=== PATIENT | female | born 1945 | race Asian ===

== ENCOUNTER 2019-07-29 20:51 | Inpatient (IN) | payer OTHER ==
[~2019-07-29] VITALS: Ht 157.5 cm; Wt 64.0 kg
[~2019-07-29 20:51] MED LIST: BENAZEPRIL HCL5 MG ORAL; COZAAR25 MG ORAL
[2019-07-29 20:55] VITALS: BP 110/86
--- NOTE | 2019-07-29 20:55 | NUR ---
ED Nurse Note: Pt FERMIN RA 31 from home. pt fell on kithen floor onto R side, pt c/o 08/24 pain, pt A&Ox4, VSS, accompanied by family, denies hitting head or loc
[2019-07-29] MEDS ORDERED: Morphine Sulfate 4mg/ml Inj (IV USE ONLY) IVP ONE (21:00)
--- NOTE | 2019-07-29 21:01 | Emergency Room Report ---
History of Present Illness General Chief Complaint: Multiple Trauma/Fall Source: Patient, Family Member, EMS Present Illness HPI Patient presents after ground-level fall. She twisted and landed on her left side. Paramedics were summoned and there is obvious deformity. They were able to give her 100 mcg of fentanyl with some improvement. Patient denies any numbness. She has a history of hypertension but denies any chest pain palpitations fevers cough nausea vomiting dysuria. No loss of consciousness. She denies any headache or neck pain. Is also some left middle finger pain when she fell she hit the hand. No chills, sore throat, abdominal pain, shortness of breath, rashes, depression , anxiety, visual changes. Allergies: Coded Allergies: No Known Allergies (Unverified , 07/29/19) Patient History Past Medical History: see triage record Social History: Denies: smoking, alcohol use, drug use Social History Narrative With family Reviewed Nursing Documentation: PMH: Agreed; PSxH: Agreed Nursing Documentation-PMH Past Medical History: No History, Except For Hx Hypertension: Yes Review of Systems All Other Systems: negative except mentioned in HPI Physical Exam Vital Signs Date Time Temp Pulse Resp B/P (MAP) Pulse Ox O2 Delivery O2 Flow Rate FiO2 07/29/19 20:48 98.6 74 18 110/86 (94) 98 Room Air Sp02 EP Interpretation: reviewed, normal General Appearance: well appearing, no apparent distress, GCS 15 Head: normocephalic Eyes: bilateral eye normal inspection, bilateral eye PERRL, bilateral eye EOMI ENT: moist mucus membranes Neck: supple Respiratory: chest non-tender, lungs clear, normal breath sounds Cardiovascular #1: regular rate, rhythm Cardiovascular #2: 2+ radial (R), 2+ dorsalis pedis (R) Gastrointestinal: normal inspection, normal bowel sounds, non tender, no mass, non-distended Musculoskeletal: back normal, pelvis stable, tender - Right thigh and left middle finger with Heberden's deformity Neurologic: alert, oriented x3, distal neuro normal, grossly normal Psychiatric: mood/affect normal Skin: no rash, warm/dry Medical Decision Making Diagnostic Impression: Primary Impression: Femur fracture, right Qualified Codes: S72.331A - Displaced oblique fracture of shaft of right femur , initial encounter for closed fracture Additional Impression: Contusion of left hand Qualified Codes: S60.222A - Contusion of left hand, initial encounter ER Course Patient presents after fall with obvious right hip deformity shortening and external rotation. Differential includes fracture, contusion pelvic fracture amongst others. She still has pain with movement although fentanyl helped from the field. Evaluation will be with EKG, chest x-ray and labs along with pelvis and right hip films. A Garcia catheter will be placed. Patient will receive IV hydration and analgesia. X-ray reveals midshaft femur fracture with displacement and slight angulation. Hare traction splint ordered. Hare traction applied. Improved pain and better alignment. Distal neurovascular checked by me and normal. Post splint application x-ray with no displacement but slight angulation. Discussed findings with patient and family. Admit Dr. Farias with consultation from Dr. Pastrana. Laboratory Tests Test 07/29/19 21:30 07/29/19 22:10 White Blood Count 7.4 K/UL (4.8-10.8) Red Blood Count 3.68 M/UL (4.20-5.40) L Hemoglobin 11.8 G/DL (12.0-16.0) L Hematocrit 35.4 % (37.0-47.0) L Mean Corpuscular Volume 96 FL (80-99) Mean Corpuscular Hemoglobin 32.0 PG (27.0-31.0) H Mean Corpuscular Hemoglobin Concent 33.3 G/DL (32.0-36.0) Red Cell Distribution Width 11.3 % (11.6-14.8) L Platelet Count 173 K/UL (150-450) Mean Platelet Volume 5.0 FL (6.5-10.1) L Neutrophils (%) (Auto) 73.6 % (45.0-75.0) Lymphocytes (%) (Auto) 17.7 % (20.0-45.0) L Monocytes (%) (Auto) 5.9 % (1.0-10.0) Eosinophils (%) (Auto) 2.3 % (0.0-3.0) Basophils (%) (Auto) 0.6 % (0.0-2.0) Prothrombin Time 9.9 SEC (9.30-11.50) Prothrombin Time INR 0.9 (0.9-1.1) PTT 25 SEC (23-33) Sodium Level 141 MMOL/L (136-145) Potassium Level 4.0 MMOL/L (3.5-5.1) Chloride Level 105 MMOL/L (98-107) Carbon Dioxide Level 30 MMOL/L (21-32) Anion Gap 6 mmol/L (5-15) Blood Urea Nitrogen 21 mg/dL (7-18) H Creatinine 0.7 MG/DL (0.55-1.30) Estimate Glomerular Filtration Rate mL/min (>60) Glucose Level 198 MG/DL (74-106) H Calcium Level 8.9 MG/DL (8.5-10.1) Total Bilirubin 0.3 MG/DL (0.2-1.0) Aspartate Amino Transferase (AST) 16 U/L (15-37) Alanine Aminotransferase (ALT) 18 U/L (12-78) Alkaline Phosphatase 48 U/L (46-116) Total Protein 7.1 G/DL (6.4-8.2) Albumin 3.5 G/DL (3.4-5.0) Globulin 3.6 g/dL Albumin/Globulin Ratio 1.0 (1.0-2.7) Urine Color Pale yellow Urine Appearance Clear Urine pH 7 (4.5-8.0) Urine Specific Dorris 1.010 (1.005-1.035) Urine Protein Negative (NEGATIVE) Urine Glucose (UA) Negative (NEGATIVE) Urine Ketones Negative (NEGATIVE) Urine Blood 1+ (NEGATIVE) H Urine Nitrite Negative (NEGATIVE) Urine Bilirubin Negative (NEGATIVE) Urine Urobilinogen Normal MG/DL (0.0-1.0) Urine Leukocyte Esterase Negative (NEGATIVE) Urine RBC 0-2 /HPF (0 - 2) Urine WBC 0 /HPF (0 - 2) Urine Squamous Epithelial Cells None /LPF (NONE/OCC) Urine Amorphous Sediment Few /LPF (NONE) H Urine Bacteria None /HPF (NONE) EKG Diagnostic Results Rate: normal Rhythm: NSR ST Segments: no acute changes Rhythm Strip Diag. Results EP Interpretation: yes Rhythm: NSR, no PVC's, no ectopy Chest X-Ray Diagnostic Results Chest X-Ray Diagnostic Results : Chest X-Ray Ordered: Yes # of Views/Limited/Complete: 1 View Indication: Other EP Interpretation: Yes Interpretation: no consolidation, no effusion, no pneumothorax Impression: No acute disease Electronically Signed by: Electronically signed by Miguel Angel Mendoza MD Other X-Ray Diagnostic Results Other X-Ray Diagnostic Results #1: X-Ray ordered: Pelvis # of Views/Limited Vs Complete: 1 View Indication: Pain EP Interpretation: Yes Interpretation: other - Midshaft femur fracture with bayonet displacement Impression: Other Electronically Signed by: Electronically signed by Miguel Angel Mendoza MD Other X-Ray Diagnostic Results #2: X-Ray ordered: Right femur # of Views/Limited Vs Complete: 1 View Indication: Pain EP Interpretation: Yes Interpretation: other - Fracture [place] displacement and soft tissue swelling Impression: Other Electronically Signed by: Electronically signed by Miguel Angel Mendoza MD Other X-Ray Diagnostic Results #3: X-Ray ordered: Left hand # of Views/Limited Vs Complete: 3 View Indication: Pain EP Interpretation: Yes Interpretation: no dislocation, no soft tissue swelling, no fractures, other - DJD Impression: Other Electronically Signed by: Electronically signed by Miguel Angel Mendoza MD Other X-Ray Diagnostic Results #4: X-Ray ordered: R femur post splint # of Views/Limited Vs Complete: 2 View Indication: Other EP Interpretation: Yes Interpretation: other - improved alignment and less displacement, fx still present Impression: Other Electronically Signed by: Electronically signed by Miguel Angel Mendoza MD Last Vital Signs Date Time Temp Pulse Resp B/P (MAP) Pulse Ox O2 Delivery O2 Flow Rate FiO2 07/30/19 00:00 98.7 72 18 121/76 (91) 98 07/30/19 00:00 Room Air Status: improved Disposition: ADMITTED INPATIENT Condition: Serious Miguel Angel Mendoza MD Jul 29, 2019 21:01
[2019-07-29] MEDS: Sodium Chloride 550 ML IV SCH ×2 (21:29→22:30)
--- NOTE | 2019-07-29 21:38 | Diagnostic Imaging Report ---
EXAM: XR Chest, 1 View CLINICAL HISTORY: TRAUMA TECHNIQUE: Frontal view of the chest. COMPARISON: No relevant prior studies available. FINDINGS: Lungs: No consolidation or mass. Pleural space: No acute findings Heart: No cardiomegaly. Mediastinum: Unremarkable. Bones joints: No acute findings. IMPRESSION: No acute cardiopulmonary process.
--- NOTE | 2019-07-29 21:40 | Diagnostic Imaging Report ---
EXAM: XR Right Femur, 2 Views CLINICAL HISTORY: TRAUMA TECHNIQUE: Frontal and lateral views of the right femur. COMPARISON: No relevant prior studies available. IMPRESSION: Displaced oblique fracture through the mid to proximal femur. Degenerative changes of the knee.
--- NOTE | 2019-07-29 21:40 | Diagnostic Imaging Report ---
EXAM: XR Right Hip With Pelvis When Performed, 2 or 3 Views CLINICAL HISTORY: TRAUMA TECHNIQUE: Two or three views of the right hip with pelvis when performed. COMPARISON: No relevant prior studies available. Impression: Oblique fracture through the right proximal femur. Hip joint is intact.
--- NOTE | 2019-07-29 21:50 | Diagnostic Imaging Report ---
EXAM: XR Left Hand Complete, 3 or More Views CLINICAL HISTORY: TRAUMA TECHNIQUE: Frontal, lateral and oblique views of the left hand. COMPARISON: No relevant prior studies available. FINDINGS: Bones joints: No acute fracture. No dislocation. Diffuse osteopenia. Soft tissues: Unremarkable. No radiopaque foreign body. IMPRESSION: No acute osseous abnormalities.
[2019-07-29 22:10] LABS: BASOPHILS % (AUTO) 0.6 % (0.0-2.0); EOSINOPHILS % (AUTO) 2.3 % (0.0-3.0); HEMATOCRIT 35.4 % (37.0-47.0); HEMOGLOBIN 11.8 G/DL (12.0-16.0); LYMPHOCYTES % (AUTO) 17.7 % (20.0-45.0); MEAN CORPUSCULAR VOLUME 96 FL (80-99); MONOCYTES % (AUTO) 5.9 % (1.0-10.0); NEUTROPHILS % (AUTO) 73.6 % (45.0-75.0); PLATELET COUNT 173 K/UL (150-450); RED BLOOD COUNT 3.68 M/UL (4.20-5.40); RED CELL DISTRIBUTION WIDTH 11.3 % (11.6-14.8); WHITE BLOOD COUNT 7.4 K/UL (4.8-10.8)
[2019-07-29 22:20] LABS: ANION GAP 6 mmol/L (5-15); BLOOD UREA NITROGEN 21 mg/dL (7-18); CALCIUM 8.9 MG/DL (8.5-10.1); CARBON DIOXIDE 30 MMOL/L (21-32); CHLORIDE 105 MMOL/L (98-107); CREATININE 0.7 MG/DL (0.55-1.30); SODIUM 141 MMOL/L (136-145)
[2019-07-29 22:24] LABS: ALANINE AMINOTRANSFERASE 18 U/L (12-78); ALBUMIN 3.5 G/DL (3.4-5.0); ALKALINE PHOSPHATASE 48 U/L (46-116); ASPARTATE AMINO TRANSFERASE 16 U/L (15-37); BILIRUBIN,TOTAL 0.3 MG/DL (0.2-1.0)
[2019-07-29 22:29] LABS: INR 0.9 (0.9-1.1)
[2019-07-29 22:32] LABS: APPEARANCE,URINE CLEAR; BILIRUBIN, URINE NEGATIVE (NEGATIVE); COLOR,URINE PALE YELLOW; GLUCOSE, URINE (UA) NEGATIVE (NEGATIVE); KETONES,URINE NEGATIVE (NEGATIVE); LEUKOCYTE ESTERASE ,URINE NEGATIVE (NEGATIVE); NITRITE,URINE NEGATIVE (NEGATIVE); PH,URINE 7 (4.5-8.0); PROTEIN,URINE NEGATIVE (NEGATIVE); UROBILINOGEN,URINE NORMAL MG/DL (0.0-1.0)
--- NOTE | 2019-07-29 22:38 | Diagnostic Imaging Report ---
EXAM: XR Right Femur, 2 Views CLINICAL HISTORY: POST-OP TECHNIQUE: Frontal and lateral views of the right femur. COMPARISON: 07 29 19 IMPRESSION: Displaced fracture through the mid proximal femur slightly improved anatomic alignment. Hip joint is intact.
--- NOTE | 2019-07-29 23:05 | NUR ---
NURSE NOTES: Receive a report from JEFFREY Roman from ED.
--- NOTE | 2019-07-29 23:20 | NUR ---
TRANSFER TO FLOOR: Patient transferred to as ordered, per Dr Farias. Report given to JEFFREY Kern. Belongings and medications given to . Family and or S/O informed of transfer.
--- NOTE | 2019-07-29 23:40 | NUR ---
NURSE NOTES: Pt is newly admitted from ED via gurney. Pt is awake and alert. No acute distress noted. Breathing is even and non labored. On Nicholson's traction on right leg d/t femur fx. Sensory and motor intact. Pain is tolerated after pain medication at ER. Reinforce of immobilization on right leg. Garcia catheter is inserted state and patent with yellowish urine. Room air with 98%. IV H/L on right AC with patent. Belongings are checked and orientation given. Call light within reach. Will continue to monitor.
[2019-07-30] VITALS: BP 121/76
--- NOTE | 2019-07-30 01:25 | NUR ---
NURSE NOTES: Receive orders from Dr. Kaye. Order noted and carried out. Will continue to monitor.
[2019-07-30] MEDS ORDERED: Morphine Sulfate 4mg/ml Inj (IV USE ONLY) IVP PRN (01:45)
[2019-07-30] MEDS ORDERED: HYDROcodone/Acetamin 10/325 tab ORAL PRN (01:45)
[2019-07-30] MEDS: Sodium Chloride 550 ML IV SCH ×2 (01:56→21:00)
[2019-07-30] MEDS: HYDROcodone/Acetamin 5/325 tab ORAL PRN ×2 (03:07→07:50)
--- NOTE | 2019-07-30 03:40 | NUR ---
NURSE NOTES: After pain medication, pain relieved. No nausea/vomiting/ dizziness noted. On traction on right leg with alignment. Sensory and motor intact. Will continue to monitor.
[2019-07-30 04:00] VITALS: BP 118/75
[2019-07-30] MEDS: Heparin 5000 units/ml inj SUBQ SCH ×3 (05:45→21:42)
[2019-07-30 08:00] VITALS: BP 122/60
--- NOTE | 2019-07-30 08:00 | NUR ---
HAND-OFF: Report given to JEFFREY Samuel. Round is done. Explain to pt for usage of blue phone for interpretation. Pt verbalize understanding.
--- NOTE | 2019-07-30 08:16 | NUR ---
NURSE NOTES: Patient alert x4, Wolof speaking; on amber air, no sing of distress and shortness of breath; no sing of chest pain; IV RAC 20G flushes well; Nicholson Traction of the Right-Leg; Garcia drains by gravity yellowish urine; side rails up x2, breaks engaged, bed at lowest position; call light within reach; will keep monitoring.
[2019-07-30] MEDS: Acetaminophen 500mg (ES) tab ORAL SCH ×3 (09:08→17:22)
--- NOTE | 2019-07-30 10:45 | Consultation ---
Consult Note Consult Note patient seen/chart reviewed. Right displaced midshaft femur fx. Require ORIf after optimization medically. 2d echo. Will proceed after clearance and optimization from medical stand point. thank you Teja Calderón MD Jul 30, 2019 10:45
[2019-07-30] MEDS ORDERED: FOSAMAX PLUS D1 EAC1 PO (11:02)
[2019-07-30] MEDS ORDERED: NORVASC5 MG ORAL (11:02)
--- NOTE | 2019-07-30 11:13 | History and Physical ---
History of Present Illness General Date patient seen: Jul 30, 2019 Time patient seen: 09:00 Reason for Hospitalization: Multiple Trauma/Fall Present Illness HPI Ms. Gentile is a 73 year old Latvian-speaking female with hx of osteoporosis (on Fosamax weekly), HTN, presenting after a fall. She was walking in her kitchen when she tripped over a box on the floor then fell onto her right side. She denies any balance issues or symptoms such as chest pain, lightheadedness prior to the fall. Currently denies any symptoms including chest pain, nausea, vomiting, SOB, fever, chills, weakness, numbness, tingling. She is only reporting pain in her right leg, which is well controlled with current pain medications. Social history: lives with family, denies tobacco or significant alcohol use. Allergies: Coded Allergies: No Known Allergies (Unverified , 07/29/19) Medication History Scheduled Alendronate Sodium/Vitamin D3 (Fosamax Plus D 70 Mg-5,600 Iu), 1 EACH PO ONCE A WEEK, (Reported) Amlodipine Besylate (Norvasc), 5 MG ORAL DAILY, (Reported) Losartan Potassium* (Cozaar*), 25 MG ORAL DAILY, (Reported) Patient History History Provided By: Patient, Family Member Healthcare decision maker yes Resuscitation status Full Code Advanced Directive on File Past Medical/Surgical History Past Medical/Surgical History: (1) Femur fracture, right (2) Contusion of left hand (3) HTN (hypertension) (4) Osteoporosis Family History Family History: Patient reports no known family medical history. Review of Systems Constitutional: Denies: no symptoms, see HPI, chills, sweats, fever, malaise, weakness, other Eye: Denies: no symptoms, see HPI, eye pain, blurred vision, tearing, double vision, nose pain, nose congestion, acuity changes, discharge, other ENT: Denies: no symptoms, see HPI, ear pain, ear discharge, nose pain, nose congestion, throat pain, throat swelling, mouth pain, hearing loss, nasal discharge, other Respiratory: Denies: no symptoms, see HPI, cough, orthopnea, shortness of breath, stridor, wheezing, COLE, sputum, other Cardiovascular: Denies: no symptoms, see HPI, chest pain, edema, palpitations, syncope, PND, other Gastrointestinal: Denies: no symptoms, see HPI, abdominal pain, constipation, diarrhea, nausea, vomiting, melena, hematemesis, other Genitourinary: Denies: no symptoms, see HPI, discharge, dysuria, frequency, hematuria, pain, retention, incontinence, urgency, vag bleed/dc, other Musculoskeletal: Reports: other - right leg pain from fx Skin: Denies: no symptoms, see HPI, rash, change in color, change in hair/nails , dryness, lesions, other Psychiatric: Denies: no symptoms, see HPI, prior hx, anxiety, depressed feelings, emotional problems, SI, HI, hallucinations, other Neurological: Denies: no symptoms, see HPI, headache, numbness, paresthesia, seizure, tingling, tremors, focal weakness, syncope, dizziness, other Endocrine: Denies: no symptoms, see HPI, excessive sweating, flushing, intolerance to temperature, increased thirst, increased urine, unexplained weight loss, other Hematologic/Lymphatic: Denies: no symptoms, see HPI, anemia, blood clots, easy bleeding, easy bruising, swollen glands, diathesis, other Physical Exam General Appearance: WD/WN, no apparent distress, alert Lines, tubes and drains: peripheral HEENT: normocephalic, atraumatic, anicteric Neck: supple Respiratory/Chest: lungs clear, normal breath sounds, no respiratory distress, no accessory muscle use Cardiovascular/Chest: normal rate, regular rhythm, no gallop/murmur Abdomen: normal bowel sounds, non tender, soft Extremities: other - right leg with external fixators in place. left leg wnl. Neurologic: alert, oriented x 3, responsive, other - legs with normal sensation bilaterally. Musculoskeletal: normal muscle bulk Last 24 Hour Vital Signs Date Time Temp Pulse Resp B/P (MAP) Pulse Ox O2 Delivery O2 Flow Rate FiO2 07/30/19 09:00 Room Air 07/30/19 08:20 98.7 07/30/19 08:00 98.9 80 18 122/60 (80) 97 07/30/19 04:00 98.7 72 18 118/75 (89) 98 07/30/19 00:00 98.7 72 18 121/76 (91) 98 07/30/19 00:00 Room Air 07/29/19 23:20 98.6 74 18 110/86 98 Room Air 07/29/19 20:55 74 18 Room Air 07/29/19 20:55 98.6 74 18 110/86 98 Room Air 07/29/19 20:48 98.6 74 18 110/86 (94) 98 Room Air Intake and Output 07/29/19 07/30/19 19:00 07:00 Intake Total 50 ml Output Total 1570 ml Balance -1520 ml Intake Oral 50 ml Output Urine Total 1570 ml Laboratory Tests Test 07/29/19 21:30 07/29/19 22:10 White Blood Count 7.4 K/UL (4.8-10.8) Red Blood Count 3.68 M/UL (4.20-5.40) L Hemoglobin 11.8 G/DL (12.0-16.0) L Hematocrit 35.4 % (37.0-47.0) L Mean Corpuscular Volume 96 FL (80-99) Mean Corpuscular Hemoglobin 32.0 PG (27.0-31.0) H Mean Corpuscular Hemoglobin Concent 33.3 G/DL (32.0-36.0) Red Cell Distribution Width 11.3 % (11.6-14.8) L Platelet Count 173 K/UL (150-450) Mean Platelet Volume 5.0 FL (6.5-10.1) L Neutrophils (%) (Auto) 73.6 % (45.0-75.0) Lymphocytes (%) (Auto) 17.7 % (20.0-45.0) L Monocytes (%) (Auto) 5.9 % (1.0-10.0) Eosinophils (%) (Auto) 2.3 % (0.0-3.0) Basophils (%) (Auto) 0.6 % (0.0-2.0) Prothrombin Time 9.9 SEC (9.30-11.50) Prothromb Time International Ratio 0.9 (0.9-1.1) Activated Partial Thromboplast Time 25 SEC (23-33) Sodium Level 141 MMOL/L (136-145) Potassium Level 4.0 MMOL/L (3.5-5.1) Chloride Level 105 MMOL/L (98-107) Carbon Dioxide Level 30 MMOL/L (21-32) Anion Gap 6 mmol/L (5-15) Blood Urea Nitrogen 21 mg/dL (7-18) H Creatinine 0.7 MG/DL (0.55-1.30) Estimat Glomerular Filtration Rate mL/min (>60) Glucose Level 198 MG/DL (74-106) H Calcium Level 8.9 MG/DL (8.5-10.1) Total Bilirubin 0.3 MG/DL (0.2-1.0) Aspartate Amino Transf (AST/SGOT) 16 U/L (15-37) Alanine Aminotransferase (ALT/SGPT) 18 U/L (12-78) Alkaline Phosphatase 48 U/L (46-116) Total Protein 7.1 G/DL (6.4-8.2) Albumin 3.5 G/DL (3.4-5.0) Globulin 3.6 g/dL Albumin/Globulin Ratio 1.0 (1.0-2.7) Urine Color Pale yellow Urine Appearance Clear Urine pH 7 (4.5-8.0) Urine Specific [place] 1.010 (1.005-1.035) Urine Protein Negative (NEGATIVE) Urine Glucose (UA) Negative (NEGATIVE) Urine Ketones Negative (NEGATIVE) Urine Blood 1+ (NEGATIVE) H Urine Nitrite Negative (NEGATIVE) Urine Bilirubin Negative (NEGATIVE) Urine Urobilinogen Normal MG/DL (0.0-1.0) Urine Leukocyte Esterase Negative (NEGATIVE) Urine RBC 0-2 /HPF (0 - 2) Urine WBC 0 /HPF (0 - 2) Urine Squamous Epithelial Cells None /LPF (NONE/OCC) Urine Amorphous Sediment Few /LPF (NONE) H Urine Bacteria None /HPF (NONE) Height (Feet): 5 Height (Inches): 2.00 Weight (Pounds): 130 Medications Current Medications Medications (Trade) Dose Ordered Sig/Sary Route PRN Reason Start Time Stop Time Status Last Admin Dose Admin Acetaminophen (Tylenol) 1,000 mg TID ORAL 07/30/19 09:00 08/29/19 08:59 07/30/19 09:08 Acetaminophen/ Hydrocodone Bitart ([place] 10/325) 1 tab Q4H PRN ORAL Severe Pain (Pain Scale 7-10) 07/30/19 01:45 08/06/19 01:44 Acetaminophen/ Hydrocodone Bitart ([place] 5/325) 1 tab Q4H PRN ORAL Moderate Pain (Pain Scale 4-6) 07/30/19 01:45 08/06/19 01:44 07/30/19 07:50 Heparin Sodium (Porcine) (Heparin 5000 units/ml) 5,000 units EVERY 8 HOURS SUBQ 07/30/19 06:00 08/29/19 05:59 07/30/19 05:45 Morphine Sulfate (Morphine Sulfate) 4 mg Q4H PRN IVP Severe Breakthru Pain (>7) 07/30/19 01:45 08/06/19 01:44 Ondansetron HCl (Zofran) 4 mg Q4H PRN IVP Nausea & Vomiting 07/30/19 01:45 08/29/19 01:44 Sodium Chloride 550 ml @ 150 mls/hr Q3H40M IV 07/29/19 21:00 08/28/19 20:59 07/29/19 22:30 Objective Narrative Right femur xray IMPRESSION: Displaced fracture through the mid proximal femur slightly improved anatomic alignment. Hip joint is intact. Left hand xray IMPRESSION: No acute osseous abnormalities. Hip xray Impression: Oblique fracture through the right proximal femur. Hip joint is intact. Assessment/Plan Problem List: (1) Femur fracture, right ICD Codes: S72.91XA - Unspecified fracture of right femur, initial encounter for closed fracture SNOMED: 50312277 Qualifiers: Qualified Codes: S72.331A - Displaced oblique fracture of shaft of right femur, initial encounter for closed fracture (2) Contusion of left hand ICD Codes: S60.222A - Contusion of left hand, initial encounter SNOMED: 0080724 Qualifiers: Qualified Codes: S60.222A - Contusion of left hand, initial encounter (3) HTN (hypertension) ICD Codes: I10 - Essential (primary) hypertension SNOMED: 81170688 Qualifiers: Qualified Codes: I10 - Essential (primary) hypertension (4) Osteoporosis ICD Codes: M81.0 - Age-related osteoporosis without current pathological fracture SNOMED: 36266261 Qualifiers: Status: stable Assessment/Plan: Ms. Gentile is a 73 year old Latvian-sp[eaking female with hx of HTN, osteoporosis s/ p fall with right displaced femur fracture. #S/P FALL #RIGHT DISPLACED FEMUR FRACTURE s/p mechanical fall at home with above mentioned fracture, s/p external fixation in ED. -Admit to med/surg. -Continue pain medications. -Ortho consulted. Appreciate recs. -Will need medical clearance prior to ORIF, first with 2D echo. (ordered) #LEFT HAND CONTUSION Xray negative. -Continue to monitor. #HTN -Continue home Losartan 25 -Continue home Amlodipine 5 #OSTEOPOROSIS -Continue Fosamax 70 weekly, dose today. #SOCIAL ISSUE Family wants to talk to about medicare. - consult placed. Tash Baptiste M.D. Jul 30, 2019 11:13
[2019-07-30 12:00] VITALS: BP 110/68
[2019-07-30 16:00] VITALS: BP 112/75
--- NOTE | 2019-07-30 18:33 | NUR ---
NURSE NOTES: Consent for the ORIF done by patient's son, Eduardo Gentile; consent on patient's file.
--- NOTE | 2019-07-30 18:35 | NUR ---
NURSE NOTES: Nicholson Traction for the Right-Leg returned to ER and given to Charge Nurse, Aye cortes. The paper the charge nurse signed for receiving the Nicholson Traction is on patient's file.
--- NOTE | 2019-07-30 19:15 | Consultation ---
DATE OF CONSULTATION: 07/30/2019 ORTHOPEDIC CONSULTATION REASON FOR CONSULTATION: Right-sided femur fracture. BRIEF HISTORY: The patient is a pleasant 73-year-old female who had a ground level fall and was noted to have right femur deformity. She was brought in by senior relationship manager. X-rays were obtained. X-ray showed a midshaft femur fracture. She also complained of some mild pain in the left middle finger, although she is able to move it. There is no significant swelling. She was admitted to the hospital with diagnosis of right femur fracture after x-ray confirmed it. Orthopedic consultation was obtained. PAST MEDICAL HISTORY: Significant for history of hypertension, but she does not have any other significant cardiac issues. She does not have a regular physician who has been following her. PAST SURGICAL HISTORY: None available. MEDICATIONS: Please see chart. ALLERGIES: No known drug allergies. SOCIAL HISTORY: She has a son by the name of Eduardo Gentile at [phone], which I discussed the care of the patient with. She does not smoke or drink. She is an ambulator. REVIEW OF SYSTEMS: Noncontributory. PHYSICAL EXAMINATION: Examination of the patient today reveals that she is a pleasant lady, cooperative with examination. The femur appears to be in line. There is a Hare traction device on. There is no numbness or tingling. She is able to wiggle her toes. X-RAYS AND MRIS: X-ray of the right hip and pelvis and femur are reviewed. There is evidence of a midshaft displaced fracture of the femur. There is no abnormal ossification or calcification. IMPRESSION: Right femur midshaft fracture in a 73-year-old female. PLAN: At this time, I had discussion with the patient and explained to her my findings. The Hare traction device is beginning to her back. Therefore, we will go ahead and remove the Hare traction device and put pillows around her leg to stabilize it. She is strict bedrest for the time being. At this time, I would like to get her optimized medically and order 2D echo. We asked Internal Medicine to evaluate her and run necessary tests to make sure she is optimized for surgery. She will require open reduction and internal fixation of right femur with IM rodding. I discussed this with her son, Eduardo Gentile at [phone] and he is in agreement with proceeding with surgery. Risks, benefits, and complications of surgery were fully discussed with him. We will plan on proceeding with surgery once she is optimized most likely Wednesday morning. All questions were answered. Teja Calderón M.D. DR: Malachi JOB#: [id number] CC:
--- NOTE | 2019-07-30 19:42 | NUR ---
HAND-OFF: Report given to JEFFREY Diaz.
--- NOTE | 2019-07-30 19:43 | NUR ---
NURSE NOTES: Received report from JEFFREY Oneill. No distress noted, patient was asleep, easily woke up. Alert, denies pain at this time. Pillow between legs as recommended. Bed in low position, locked, side rails up x2, call light within reach. Will continue to monitor.
[2019-07-30 20:00] VITALS: BP 99/64
[2019-07-31] VITALS: BP 103/61
--- NOTE | 2019-07-31 01:16 | NUR ---
Patient asleep. No distress noted.
--- NOTE | 2019-07-31 03:53 | NUR ---
NURSE NOTES: Repositioned, slight tilt towards left with pillow. Patient visibly in pain, grimacing and moaning, but refused pain medication several times. Encouraged to call as needed, verbalizes understanding. Will continue to monitor.
[2019-07-31 04:00] VITALS: BP 100/64
[2019-07-31] MEDS: Heparin 5000 units/ml inj SUBQ SCH ×3 (06:14→21:27)
--- NOTE | 2019-07-31 06:33 | NUR ---
NURSE NOTES: Son here visiting. States he would like to be called when physician and/or social services assistant come in to see patient. Will endorse to AM shift RN. Pain assessment and control discussed with patient and son. Patient denies pain at this time.
--- NOTE | 2019-07-31 07:39 | NUR ---
NURSE NOTES: Report given to JEFFREY Romero.
--- NOTE | 2019-07-31 07:45 | NUR ---
NURSE NOTES: Received report from JEFFREY Chapman. Rounding done with outgoing nurse. Pt a/o x 4, Croatian speaking, in bed. No respiratory distress noted. Denies any pain at this time. SCD is on for left lower leg. Garcia catheter is patent. Bed in lowest position, call light within reach. Will continue to monitor.
[2019-07-31 08:00] VITALS: BP 102/67
[2019-07-31] MEDS: Acetaminophen 500mg (ES) tab ORAL SCH ×3 (08:36→17:30)
[2019-07-31] MEDS: Losartan 25mg tab ORAL SCH (08:37)
--- NOTE | 2019-07-31 09:06 | General Progress Note ---
Assessment/Plan Status: stable Assessment/Plan: Ms. Gentile is a 73 year old Turkmen-speaking female with hx of HTN, osteoporosis s/ p mechanical fall with right displaced femur fracture. 1. Right displaced femur fracture s/p mechanical fall ss/p external fixation in ED. -Continue pain medications. -Ortho consulted. Appreciate recs. -Patient is medically stable and optimized for planned orthopedic procedure. open reduction and internal fixation of right femur with IM rodding. RCRI class I risk ( 0 points), 3.9% 30-day risk of , [place], or cardiac arrest. No further testing indicated NSQIP below average risk for all outcomes including serious complications, pneumonia, sepsis and discharge to nursing/rehab facility 2. Left hand contusion Xray negative. -Continue to monitor. 3.HTN, controlled -Continue home Losartan 25 -Continue home Amlodipine 5 4.Osteoporosis -Continue Fosamax 70 weekly, dose today. 5.Social issues Self pay patient. Family wants to talk to SW -SW consult placed. I spent 40 minutes on this encounter. 50% spent on counselling and care coordination Time of this note may not reflect time of encounter Subjective Date patient seen: Jul 31, 2019 ROS Limited/Unobtainable: No Constitutional: Denies: no symptoms, chills, diaphoresis, fever, malaise, weakness, other - hip pain HEENT: Denies: no symptoms, eye pain, blurred vision, tearing, double vision, ear pain, ear discharge, nose pain, nose congestion, throat pain, throat swelling, mouth pain, mouth swelling, other Cardiovascular: Denies: no symptoms, chest pain, edema, irregular heart rate, lightheadedness, palpitations, syncope, other Respiratory: Denies: no symptoms, cough, orthopnea, shortness of breath, SOB with excertion, SOB at rest, sputum, stridor, wheezing, other Gastrointestinal/Abdominal: Denies: no symptoms, abdomen distended, abdominal pain, black stools, tarry stools, blood in stool, constipated, diarrhea, difficulty swallowing, nausea, poor appetite, poor fluid intake, rectal bleeding , vomiting, other Genitourinary: Denies: no symptoms, burning, discharge, frequency, flank pain, hematuria, incontinence, pain, urgency, other Neurologic/Psychiatric: Denies: no symptoms, anxiety, depressed, emotional problems, headache, numbness, paresthesia, pre-existing deficit, seizure, tingling, tremors, weakness, other Endocrine: Denies: no symptoms, excessive sweating, flushing, intolerance to cold, intolerance to heat, increased hunger, increased thirst, increased urine, unexplained weight gain, unexplained weight loss, other Hematologic/Lymphatic: Denies: no symptoms, anemia, easy bleeding, easy bruising, other Allergies: Coded Allergies: No Known Allergies (Unverified , 07/29/19) Subjective seen and examined at bedside Admitted s/p mechanical fall and sustaining right femur fracture Denies any chest pain, sob, palpitations, syncope, dizziness or lightheadedness Objective Last 24 Hour Vital Signs Date Time Temp Pulse Resp B/P (MAP) Pulse Ox O2 Delivery O2 Flow Rate FiO2 07/31/19 08:37 102/67 07/31/19 08:00 97.7 86 18 102/67 (79) 95 07/31/19 04:00 97.9 69 16 100/64 (76) 96 07/31/19 00:00 97.7 73 17 103/61 (75) 96 07/30/19 21:00 Room Air 07/30/19 20:00 97.9 70 16 99/64 (76) 96 07/30/19 17:52 98.2 07/30/19 16:00 98.2 74 17 112/75 (87) 95 07/30/19 12:00 98.3 65 20 110/68 (82) 98 Intake and Output 07/30/19 07/31/19 19:00 07:00 Intake Total 720 ml 440 ml Output Total 1100 ml Balance 720 ml -660 ml Intake Oral 720 ml 440 ml Output Urine Total 1100 ml # Voids 2 Admission labs reviewed not attached here EKG: NSR, normal intervals, no acute st-t changes Echo: Normal LV systolic function, Grade I diastolic dysfunction, pulmonary hypertension Height (Feet): 5 Height (Inches): 2.00 Weight (Pounds): 130 Objective General Appearance: no apparent distress, alert Lines, tubes and drains: peripheral HEENT: normocephalic, atraumatic, anicteric Neck: supple, no jvd Respiratory/Chest: lungs clear, normal breath sounds, no respiratory distress, no accessory muscle use Cardiovascular/Chest: normal rate, regular rhythm, no gallop/murmur Abdomen: normal bowel sounds, non tender, soft Extremities: right leg with external fixators in place. left leg wnl. Neurologic: alert, oriented x 3, responsive, other - legs with normal sensation bilaterally. Musculoskeletal: normal muscle bulk skin: no rashes or ulcers You Warner M.D. Jul 31, 2019 09:06
[2019-07-31] MEDS: HYDROcodone/Acetamin 5/325 tab ORAL PRN ×2 (10:16→23:27)
--- NOTE | 2019-07-31 11:15 | Cardiology Report ---
APPROVED REPORT EKG Measurement Heart [id number] Normal sinus rhythm Normal ECG
[2019-07-31 12:00] VITALS: BP 108/69
--- NOTE | 2019-07-31 12:45 | Cardiology Report ---
APPROVED REPORT EXAM: Two-dimensional and M-mode echocardiogram with Doppler and color Doppler. INDICATION Pre-Op M-Mode DIMENSIONS IVSd1.5 (0.7-1.1cm)Left Atrium (MM)2.1 (1.6-4.0cm) LVDd4.0 (3.5-5.6cm)Aortic Root3.4 (2.0-3.7cm) PWd1.0 (0.7-1.1cm)Aortic Cusp Exc.2.0 (1.5-2.0cm) LVDs1.5 (2.5-4.0cm) PWs1.8 cm Normal left ventricular chamber size, systolic function and wall motion. Left ventricular ejection fraction estimated to be 60 %. Mild left ventricular hypertrophy. No evidence of pericardial effusion. All other cardiac chamber sizes are within normal limits. Focal aortic valve sclerosis with adequate cusp excursion. Thickened mitral valve leaflets with normal excursion. Mild mitral annulus and aortic root calcification. Pulmonic valve not well visualized. Normal tricuspid valve structure. IVC is normal in size with physiological collapse. A color flow and spectral Doppler study was performed and revealed: No aortic regurgitation. Mild to moderate mitral regurgitation. Mitral diastolic velocities suggest mild left ventricular diastolic dysfunction (Grade I). Moderate tricuspid regurgitation. Tricuspid systolic velocities suggests peak right ventricular systolic pressure of 50 mmHg, consistent with moderate pulmonary hypertension. Moderate pulmonic regurgitation present.
--- NOTE | 2019-07-31 14:27 | NUR ---
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 98.6 HR 74 RR 18 B/P 160/86 RIGHT FEMUR X-RAY=OBLIQUE FRACTURE 2D ECHO= EF 60% CXR= NO ACUTE PROCESS BUN 21 IS: ZOFRAN IV MORPHINE IV IV BOLUS NS X 500ML ADMITTED TO MED/SURG@ 2330 MED/SURG STATUS DCP RETURN HOME
--- NOTE | 2019-07-31 14:50 | Anethesia Preoperative Eval ---
Anesthesia Pre-op PMH/ROS General Date of Evaluation: Jul 31, 2019 Time of Evaluation: 14:46 Anesthesiologist: Laci ASA Score: ASA 3 Mallampati Score Class I : Soft palate, uvula, fauces, pillars visible Class II: Soft palate, uvula, fauces visible Class III: Soft palate, base of uvula visible Class IV: Only hard plate visible Mallampati Classification: Class II Surgeon: Kaitlynn Diagnosis: R Femur Fx Surgical Procedure: ORIF R Femur Anesthesia History: none Family History: no anesthesia problems Allergies: Coded Allergies: No Known Allergies (Unverified , 07/29/19) Medications: see eMAR Patient NPO?: Yes Past Medical History Cardiovascular: Reports: HTN Pulmonary: Reports: asthma HEENT: Reports: cataract (L), cataract (R) Musculoskeletal/Integumentary: Reports: OA, other - Contracture Anesthesia Pre-op Phys. Exam Physician Exam Last Vital Signs Date Time Temp Pulse Resp B/P (MAP) Pulse Ox O2 Delivery O2 Flow Rate FiO2 07/31/19 12:00 98.9 79 17 108/69 (82) 96 07/31/19 09:00 Room Air Constitutional: NAD Neurologic: CN 2-12 intact Cardiovascular: RRR Respiratory: CTA Gastrointestinal: S/NT/ND Airway Exam Mallampati Score: Class II MO: limited ROM: limited Teeth: missing, intact Anesthesia Pre-op A/P Risk Assessment & Plan Assessment: ASA 3 Plan: GA Status Change Before Surgery: No Pre-Antibiotics Drug: Juan Daugherty MD Jul 31, 2019 14:50
[2019-07-31 16:00] VITALS: BP 105/68
--- NOTE | 2019-07-31 19:22 | NUR ---
HAND-OFF: Report given to JEFFREY Chapman.
--- NOTE | 2019-07-31 19:24 | NUR ---
NURSE NOTES: Received report from JEFFREY Romero. Patient alert, awake, No distress noted, no pain reported. Patient aware of NPO status after midnight in preparation for surgery. Bed in low position, locked, side rails up x2, call light within reach. Will continue to monitor.
[2019-07-31 20:00] VITALS: BP 112/67
[2019-08-01] VITALS (12 sets, daily range): BP systolic 96–126; BP diastolic 61–79
--- NOTE | 2019-08-01 02:57 | NUR ---
NURSE NOTES: Patient sleeping quietly.
[2019-08-01 05:37] LABS: BASOPHILS % (AUTO) 0.6 % (0.0-2.0); EOSINOPHILS % (AUTO) 4.1 % (0.0-3.0); HEMATOCRIT 32.2 % (37.0-47.0); HEMOGLOBIN 10.6 G/DL (12.0-16.0); LYMPHOCYTES % (AUTO) 29.3 % (20.0-45.0); MEAN CORPUSCULAR VOLUME 97 FL (80-99); MONOCYTES % (AUTO) 8.3 % (1.0-10.0); NEUTROPHILS % (AUTO) 57.6 % (45.0-75.0); PLATELET COUNT 174 K/UL (150-450); RED BLOOD COUNT 3.32 M/UL (4.20-5.40); RED CELL DISTRIBUTION WIDTH 10.8 % (11.6-14.8); WHITE BLOOD COUNT 6.4 K/UL (4.8-10.8)
[2019-08-01 05:49] LABS: ANION GAP 5 mmol/L (5-15); BLOOD UREA NITROGEN 21 mg/dL (7-18); CALCIUM 7.9 MG/DL (8.5-10.1); CARBON DIOXIDE 28 MMOL/L (21-32); CHLORIDE 107 MMOL/L (98-107); CREATININE 0.7 MG/DL (0.55-1.30); POTASSIUM 4.4 MMOL/L (3.5-5.1); SODIUM 140 MMOL/L (136-145)
[2019-08-01] MEDS: Heparin 5000 units/ml inj SUBQ SCH ×3 (06:00→21:23)
[2019-08-01] MEDS ORDERED: Morphine Sulfate PF 10 ML ONE (06:41)
[2019-08-01] MEDS ORDERED: fentaNYL 100 mcg/2 mL IV ONE (06:41)
[2019-08-01] MEDS ORDERED: Bacitracin 50000 Units Vial ONE (06:47)
[2019-08-01] MEDS ORDERED: Bupivacaine w/Epi 0.5% 30ml Vial INJ ONE (06:47)
[2019-08-01] MEDS ORDERED: Bupivacaine 0.5% Inj 30 ml vial INJ ONE (06:47)
[2019-08-01] MEDS ORDERED: NeoSporin Gu Irrig 1ml Amp IRRIG ONE (06:47)
--- NOTE | 2019-08-01 06:51 | NUR ---
NURSE NOTES: Patient taken to OR via bed, accompanied by OR tech and son.
[2019-08-01] MEDS ORDERED: Succinylcholine 20mg/ml 10ml vial ONE (06:52)
[2019-08-01] MEDS ORDERED: NS Irrig 1000ml ONE (07:00)
[2019-08-01] MEDS ORDERED: fentaNYL 100 mcg/2 mL IV PRN (07:00)
[2019-08-01] MEDS ORDERED: Hydromorphone 0.5mg/0.5ml inj IVP PRN (07:00)
[2019-08-01] MEDS ORDERED: LR 1000ml ONE (07:00)
[2019-08-01] MEDS ORDERED: Acetaminophen (Non formulary) 100 ML IV ONE (07:00)
[2019-08-01] MEDS ORDERED: ePHEDrine 50mg/ml Inj ONE (07:00)
[2019-08-01] MEDS ORDERED: Sterile Water Irrig 1000ml IRRIG ONE (07:00)
[2019-08-01] MEDS ORDERED: Metoclopramide 10mg/2ml Inj IVP PRN (07:00)
--- NOTE | 2019-08-01 07:01 | Pre-Procedure Note/Attestation ---
Pre-Procedure Note/Attestation Complete Prior to Procedure Planned Procedure: right Procedure Narrative: rt femur ORIF Indications for Procedure Pre-Operative Diagnosis: rt femur fracture Attestation I attest that I discussed the nature of the procedure; its benefits; risks and complications; and alternatives (and the risks and benefits of such alternatives ), prior to the procedure, with the patient (or the patient's legal food service representative). I attest that, if there was a reasonable possibility of needing a blood transfusion, the patient (or the patient's legal food service representative) was given the [facility] standardized written summary, pursuant to the Lawrence Nithya Blood Safety Act ([place] Health and Safety Code # 1645, as amended). I attest that I re-evaluated the patient just prior to the surgery and that there has been no change in the patient's H&P, except as documented below: NONE Teja Calderón MD Aug 01, 2019 07:01
--- NOTE | 2019-08-01 07:33 | NUR ---
HAND-OFF: Report given to Chris. MURPHY.
--- NOTE | 2019-08-01 07:52 | NUR ---
NURSE NOTES: Received report from JEFFREY Chapman, who stated patient went to surgery just prior to shift change.
[2019-08-01] MEDS ORDERED: Lidocaine 1% MPF 10mg/ml 5ml ONE (08:15)
[2019-08-01] MEDS ORDERED: Propofol 200mg/20ml IV ONE (08:15)
[2019-08-01] MEDS: Losartan 25mg tab ORAL SCH (09:00)
--- NOTE | 2019-08-01 09:00 | Brief Operative Note ---
Immediate Post Operative Note Operative Note Chief Complaint: rt leg pain Pre-op Diagnosis: rt femur fracture Procedure: rt femur orif Post-op Diagnosis: same as pre-op Findings: consistent w/pre-op dx studies Surgeon: md alexander Pit Hoist Operator: marvin stuart Anesthesiologist: MD Brian/GURINDER Valentine Anesthesia: general Specimen: none Complications: none Condition: stable Fluids: ns Estimated Blood Loss: minimal Drains: none Implant(s) used?: Yes - Teja Palafox MD Aug 01, 2019 09:00
--- NOTE | 2019-08-01 09:25 | General Progress Note ---
Assessment/Plan Status: stable Assessment/Plan: Ms. Gentile is a 73 year old Tamazight-speaking female with hx of HTN, osteoporosis s/ p mechanical fall with right displaced femur fracture. now POD 0, s/p open reduction and internal fixation of right femur. 1. Right displaced femur fracture s/p mechanical fall s/p open reduction and internal fixation. POD 0 -Continue pain medications. -vte ppx: ASA and heparin subq,q8hr -PT 2. Left hand contusion Xray negative. -Continue to monitor. 3.HTN, controlled -Continue home Losartan 25 -Continue home Amlodipine 5 4.Osteoporosis -Continue Fosamax 70 weekly, dose today. 5.Social issues reg insurance, now fixed -SW consult placed. I spent 40 minutes on this encounter. 50% spent on counselling and care coordination Time of this note may not reflect time of encounter Subjective Date patient seen: Aug 01, 2019 ROS Limited/Unobtainable: No Constitutional: Denies: no symptoms, chills, diaphoresis, fever, malaise, weakness, other HEENT: Denies: no symptoms, eye pain, blurred vision, tearing, double vision, ear pain, ear discharge, nose pain, nose congestion, throat pain, throat swelling, mouth pain, mouth swelling, other Cardiovascular: Denies: no symptoms, chest pain, edema, irregular heart rate, lightheadedness, palpitations, syncope, other Respiratory: Denies: no symptoms, cough, orthopnea, shortness of breath, SOB with excertion, SOB at rest, sputum, stridor, wheezing, other Gastrointestinal/Abdominal: Denies: no symptoms, abdomen distended, abdominal pain, black stools, tarry stools, blood in stool, constipated, diarrhea, difficulty swallowing, nausea, poor appetite, poor fluid intake, rectal bleeding , vomiting, other Genitourinary: Denies: no symptoms, burning, discharge, frequency, flank pain, hematuria, incontinence, pain, urgency, other Neurologic/Psychiatric: Denies: no symptoms, anxiety, depressed, emotional problems, headache, numbness, paresthesia, pre-existing deficit, seizure, tingling, tremors, weakness, other Endocrine: Denies: no symptoms, excessive sweating, flushing, intolerance to cold, intolerance to heat, increased hunger, increased thirst, increased urine, unexplained weight gain, unexplained weight loss, other Hematologic/Lymphatic: Denies: no symptoms, anemia, easy bleeding, easy bruising, other Allergies: Coded Allergies: No Known Allergies (Unverified , 07/29/19) Subjective seen and examined at bedside just returned from the OR no complaints Objective Last 24 Hour Vital Signs Date Time Temp Pulse Resp B/P (MAP) Pulse Ox O2 Delivery O2 Flow Rate FiO2 08/01/19 09:14 65 13 105/66 100 Simple Mask 6 08/01/19 09:09 97.8 60 14 119/72 100 Simple Mask 6 08/01/19 04:00 98.1 67 16 105/67 (80) 98 08/01/19 00:00 98.4 82 17 109/70 (83) 96 07/31/19 21:00 Room Air 07/31/19 20:00 98.6 87 17 112/67 (82) 96 07/31/19 16:00 98.3 73 18 105/68 (80) 96 07/31/19 12:00 98.9 79 17 108/69 (82) 96 Intake and Output 07/31/19 08/01/19 19:00 07:00 Intake Total 1340 ml Output Total 800 ml Balance 540 ml Intake Oral 1340 ml Output Urine Total 800 ml # Bowel Movements 2 Laboratory Tests 08/01/19 04:50: White Blood Count 6.4, Red Blood Count 3.32L, Hemoglobin 10.6L, Hematocrit 32.2L , Mean Corpuscular Volume 97, Mean Corpuscular Hemoglobin 32.0H, Mean Corpuscular Hemoglobin Concent 33.0, Red Cell Distribution Width 10.8L, Platelet Count 174, Mean Platelet Volume 5.1L, Neutrophils (%) (Auto) 57.6, Lymphocytes (%) (Auto) 29.3, Monocytes (%) (Auto) 8.3, Eosinophils (%) (Auto) 4.1H, Basophils (%) (Auto) 0.6, Sodium Level 140, Potassium Level 4.4, Chloride Level 107, Carbon Dioxide Level 28, Anion Gap 5, Blood Urea Nitrogen 21H, Creatinine 0.7, Estimat Glomerular Filtration Rate , Glucose Level 115H, Calcium Level 7.9L Height (Feet): 5 Height (Inches): 2.00 Weight (Pounds): 130 Objective General Appearance: no apparent distress, alert Lines, tubes and drains: peripheral HEENT: normocephalic, atraumatic, anicteric Neck: supple, no jvd Respiratory/Chest: lungs clear, normal breath sounds, no respiratory distress, no accessory muscle use Cardiovascular/Chest: normal rate, regular rhythm, no gallop/murmur Abdomen: normal bowel sounds, non tender, soft Neurologic: alert, oriented x 3, responsive, other - legs with normal sensation bilaterally. Musculoskeletal: normal muscle bulk skin: no rashes or ulcers You Warner M.D. Aug 01, 2019 09:25
--- NOTE | 2019-08-01 10:34 | NUR ---
NURSE NOTES: Patient arrrived back from OR at 1015am, received report from JEFFREY Everett. Patient comfortable appearing , aox4 and no CO pain. Son, Sheron Oakley, at bedside. Offered water, but patient declined. IVF runing per JAN. VSS , breathing easily on RA. No sign of cardiac or respiratory distress. Bed in [facility] , locked postiion with call grey at hand. Son translated to patient who had no further questions at this time. Patient stated that she understood she should call for help and not attempt to get oob without help--currently awaiting PT eval per orders. Garcia cdi and draining clear yellow urine and no discomfort reported by patient. Addendum: 08/01/19 at 1041 by Dallas Carr RN Surgical wound on R thigh covered with cdi occlusive foam tape--no swelling or redness noted and patient denies pain. Patient stated her lowoer legs numb but able to move with warm, strong DP pulses
--- NOTE | 2019-08-01 10:39 | NUR ---
Social Service Note PARAG left a detailed message for Eduardo Gentile [phone] regarding Medicare. Family can apply on line at SSA.gov or Medicare.gov and call social security at [phone] with patient to determine if patient is eligible for coverage. PARAG will continue to be available as needed.
--- NOTE | 2019-08-01 10:40 | Immediate Post-Op Evaluation ---
Immediate Post-Op Evalulation Immediate Post-Op Evalulation Procedure: femur ORIF Date of Evaluation: Aug 01, 2019 Time of Evaluation: 09:19 IV Fluids: 800 Blood Products: 0 Estimated Blood Loss: 100 Urinary Output: 200 Blood Pressure Systolic: 119 Blood Pressure Diastolic: 72 Pulse Rate: 60 Respiratory Rate: 14 O2 Sat by Pulse Oximetry: 98 Nausea: No Vomiting: No Complications none Patient Status: awake, reacts, patent Hydration Status: adequate Drug: ancef Given Within 1 Hr of Incision: Yes Time Given: 07:08 Meme Horn CRNA Aug 01, 2019 10:40
[2019-08-01] MEDS ORDERED: HYDROcodone/Acetamin 5/325 tab ORAL PRN (10:51)
[2019-08-01] MEDS ORDERED: Hydromorphone 0.5mg/0.5ml inj SUBQ PRN (10:51)
[2019-08-01] MEDS: D5 1/2NS 1,000 ML IV SCH (11:11)
--- NOTE | 2019-08-01 11:38 | NUR ---
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
--- NOTE | 2019-08-01 12:37 | Diagnostic Imaging Report ---
Indication: Right thigh Pain Findings: 2 views of the right femur were obtained. Postop images of the right femur demonstrating a long intramedullary david reducing a fracture of the mid shaft of the femur. Proximal and distal locking screws noted. Hardware alignment and position is satisfactory. IMPRESSION: Immediate postop films showing a surgical reduction of a right mid femur fracture
--- NOTE | 2019-08-01 12:38 | Diagnostic Imaging Report ---
Indication: Intraoperative imaging COMPARISON: None FINDINGS: 9 fluoroscopic images were obtained intraoperatively. Total fluoroscopic time 94 seconds Multiple intraoperative images showing intramedullary david fixation of a right mid femoral fracture IMPRESSION: Intraoperative imaging as described above
[2019-08-01] MEDS: Aspirin Baby 81mg ORAL SCH ×2 (12:58→17:55)
[2019-08-01] MEDS: Acetaminophen 500mg (ES) tab ORAL SCH ×3 (12:58→17:56)
[2019-08-01] MEDS: Docusate 100mg cap ORAL SCH ×2 (15:43→17:56)
[2019-08-01] MEDS: ceFAZolin sod 1 GM in D5W 55 ML IV SCH ×2 (15:49→23:09)
--- NOTE | 2019-08-01 16:36 | NUR ---
P.T NOTE: P.T EVALUATION COMPLETED AND TX INITIATED S/P R HIP ORIF POD#0. DAUGHTER PRESENT FOR TURKMEN TRANSLATION AND WHO PROVIDED INFO. RE: PLOF. PATIENT IS ALERT, PLEASANT AND COOPERATIVE DESPITE C/O R HIP PAIN LIMITING HER MOBILITY PERFORMANCE, INDEPENDENCE AND SAFETY. PATIENT CURRENTLY REQUIRES MIN/MOD A X 1 FOR BED MOBILITIES AND TRANSFER ACTIVITIES. PATIENT WAS ABLE TO AMBULATE NO MORE THAN 4 TINY STEPS DUE TO C/O PAIN AND NAUSEA HOWEVER NO VOMITING EPISODE. PATIENT STATED FEELING BETTER AFTER RETURNING BACK TO BED AT MAX COMFORT POSITION. PATIENT IS MOTIVATED TO GET BETTER AND FAMILY HIGHLY INVOLVED IN PATIENT CARE. PATIENT SHOULD BENEFIT FROM SKILLED P.T SERVICE TO IMPROVE MOBILITY INDEPENDENCE AND SAFETY DURING STAY TO FACILITATE RETURN TO PLOF. RECOMMEND SNF FOR SHORT TERM REHAB VS HOME WITH P.T DEPENDING ON PROGRESS AT D/C. DME'S TO INCLUDE BEDSIDE COMMODE AND FWW. THANK YOU FOR THIS REFERRAL.
--- NOTE | 2019-08-01 17:30 | NUR ---
NURSE NOTES: Patient diet advanced to regular for dinner after tolerating 100% of full liquid diet for lunch with no nvd. No CO pain. Leg surg site continued to appear cdi wtih foam tape coverage. AOX4 with calm, pleasant affect. Fam at bedside. IVF cont'd and brody with clear yellow output. Call grey in reach and bed in lowest , locked position.
--- NOTE | 2019-08-01 17:39 | 48 Hour Post Anesthesia Eval ---
Post Anesthesia Evaluation Procedure: femur ORIF Date of Evaluation: Aug 01, 2019 Time of Evaluation: 17:38 Blood Pressure Systolic: 116 0: 64 Pulse Rate: 70 Respiratory Rate: 14 O2 Sat by Pulse Oximetry: 97 Airway: patent Nausea: No Vomiting: No Pain Intensity: 5 Hydration Status: adequate Cardiopulmonary Status: stable Mental Status/LOC: patient returned to baseline Post-Anesthesia Complications: none Follow-up care needed: N/A Meme Horn CRNA Aug 01, 2019 17:39
--- NOTE | 2019-08-01 19:15 | NUR ---
NURSE NOTES: Received report from JEFFREY Wallace. Rounds done. Patient doing well, sitting up in bed. Right leg dressing intact and dry. Icepack on. Patient also likes to keep an ice pack on her upper back. Denies pain at this time, no nausea, no vomiting. IVF infusing in left hand #20. Garcia catheter intact and patent, draining clear yellow urine. Bed in low position, locked, side rails up x2. Call light within reach. Will continue to monitor.
--- NOTE | 2019-08-01 21:00 | NUR ---
NURSE NOTES: Assisted and instructed patient to keep R leg elevated, applied ice pack as well. Encouraged to call as needed.
--- NOTE | 2019-08-01 22:00 | Operative Note - Dictated ---
DATE OF OPERATION: 08/01/2019 PREOPERATIVE DIAGNOSIS: Right midshaft slightly comminuted femur fracture with displacement and shortening. POSTOPERATIVE DIAGNOSIS: Right midshaft slightly comminuted femur fracture with displacement and shortening. PROCEDURE: Open reduction and internal fixation on the right femur using a [place] intramedullary nail, 10 mm in diameter, 32 cm in length with a 32.5 mm proximal screw fixation, and distal dynamic 42.5 mm fixation. SURGEON: Teja Calderón M.D. MAIL SORTER: Alia Rojas PA-C. ANESTHESIOLOGIST: . ANESTHESIA: Spinal anesthesia. ESTIMATED BLOOD LOSS: Less than 150 mL. COMPLICATIONS: None. BRIEF HISTORY: The patient is a pleasant 73-year-old female, who has sustained a mechanical fall and had a midshaft femur fracture. She was evaluated by Internal Medicine, was cleared from Internal Medicine standpoint. After full discussion of risks and benefits of the surgery with the patient and her son and risks of infection, bleeding, neurovascular complication with DVT, PE, fat emboli, other complications that may arise down the line as well as inability to walk, need for hardware removal, hardware failure, and other complications that may occur, she opted for surgical treatment as described above. OPERATIVE PROCEDURE: The patient was brought to the operating table and was placed supine. All pressure points were well padded. Spinal anesthesia was induced and the patient was placed on the traction table with the right leg in traction and the left leg in a well leg davis. All pressure points were well padded. The right femur was then reduced as best as possible and traction was applied. The leg was abducted. At this point, the left leg was prepped and draped in usual sterile fashion. The standard incision was made just proximal to the trochanter. Using image intensifier, the trochanter was identified and a guide pin was placed into the trochanter intramedullary. At this point, the proximal reaming was performed and a reduction device was placed in. A superior pressure was placed over the distal portion of the femur and the fracture was reduced on the lateral view and a ball head guidewire was passed through the fracture site. Once this was completed, proximal reaming was performed to 13 and shaft reaming was performed starting from [address] up to 11.5 mm. This provided excellent cortical purchase. Once this was completed, measurements of the nail was made and 32 cm nail appeared to be the right size, 10 mm nail appeared to be the correct diameter. Therefore, a 10 mm x 32 cm nail was then loaded onto the guide and was placed over the ball headed guidewire. The nail crossed the fracture site and the guidewire was removed. The traction was removed and the nail was then malleted in all the way down to just at the level of the patella. At this point, the nail was well seated. Using the guide, proximal fixation was obtained using 32.5 mm screws, bicortical fixation was obtained distally. The fracture was visualized both on AP and lateral and appeared to be well compressed. Distal fixation was placed in the dynamic screw hole using 42.5 mm screw fixation. Once this was completed, the final x-rays were obtained on AP and lateral and all hardware were in excellent position. The screws were bicortical and through the nail. Wounds were thoroughly irrigated using copious amount of fluid. The gluteal fascia was closed using #1 Vicryl suture. Subcutaneous tissue was closed using 2-0 Vicryl suture. Skin was closed using 3-0 Monocryl suture. Sterile dressing was applied and the patient was then taken off the fracture table, was taken to recovery room in stable condition. All lap counts and instrument counts were correct. Time-out was performed prior to starting the surgery, and preop antibiotics were given. Teja Calderón M.D. DR: HENRIETTA JOB#: [id number] CC:
[2019-08-02] VITALS: BP 104/63
[2019-08-02] MEDS: D5 1/2NS 1,000 ML IV SCH (03:30)
[2019-08-02 04:00] VITALS: BP 109/68
[2019-08-02] MEDS: Heparin 5000 units/ml inj SUBQ SCH ×3 (06:13→21:28)
[2019-08-02 06:24] LABS: BASOPHILS % (AUTO) 0.5 % (0.0-2.0); EOSINOPHILS % (AUTO) 1.6 % (0.0-3.0); HEMATOCRIT 27.5 % (37.0-47.0); HEMOGLOBIN 9.1 G/DL (12.0-16.0); LYMPHOCYTES % (AUTO) 13.2 % (20.0-45.0); MEAN CORPUSCULAR VOLUME 96 FL (80-99); MONOCYTES % (AUTO) 8.7 % (1.0-10.0); PLATELET COUNT 179 K/UL (150-450); RED BLOOD COUNT 2.85 M/UL (4.20-5.40); RED CELL DISTRIBUTION WIDTH 11.7 % (11.6-14.8); WHITE BLOOD COUNT 5.8 K/UL (4.8-10.8)
[2019-08-02 06:34] LABS: ANION GAP 6 mmol/L (5-15); BLOOD UREA NITROGEN 12 mg/dL (7-18); CALCIUM 7.4 MG/DL (8.5-10.1); CARBON DIOXIDE 25 MMOL/L (21-32); CHLORIDE 104 MMOL/L (98-107); CREATININE 0.6 MG/DL (0.55-1.30); POTASSIUM 4.5 MMOL/L (3.5-5.1); SODIUM 135 MMOL/L (136-145)
[2019-08-02] MEDS: ceFAZolin sod 1 GM in D5W 55 ML IV SCH (07:13)
--- NOTE | 2019-08-02 07:36 | NUR ---
HAND-OFF: Report given to JEFFREY Landa. Bedside rounds done. Paper report handed to Syeda, charge nurse for incoming nurse. .
--- NOTE | 2019-08-02 07:50 | NUR ---
NURSE NOTES: Patient is asleep. Stable. No signs of distress noted at this time. Breathing is even and unlabored. Patient is in bed in locked and lowest position with call light within reach. Will continue to monitor.
[2019-08-02 08:00] VITALS: BP 119/66
--- NOTE | 2019-08-02 08:21 | Orthopedic Progress Note ---
Orthopedic - Progress Note Subjective Symptoms: improved Objective Laboratory Tests Test 08/02/19 05:50 White Blood Count 5.8 K/UL (4.8-10.8) Red Blood Count 2.85 M/UL (4.20-5.40) L Hemoglobin 9.1 G/DL (12.0-16.0) L Hematocrit 27.5 % (37.0-47.0) L Mean Corpuscular Volume 96 FL (80-99) Mean Corpuscular Hemoglobin 31.9 PG (27.0-31.0) H Mean Corpuscular Hemoglobin Concent 33.1 G/DL (32.0-36.0) Red Cell Distribution Width 11.7 % (11.6-14.8) Platelet Count 179 K/UL (150-450) Mean Platelet Volume 5.3 FL (6.5-10.1) L Neutrophils (%) (Auto) 76.0 % (45.0-75.0) H Lymphocytes (%) (Auto) 13.2 % (20.0-45.0) L Monocytes (%) (Auto) 8.7 % (1.0-10.0) Eosinophils (%) (Auto) 1.6 % (0.0-3.0) Basophils (%) (Auto) 0.5 % (0.0-2.0) Sodium Level 135 MMOL/L (136-145) L Potassium Level 4.5 MMOL/L (3.5-5.1) Chloride Level 104 MMOL/L (98-107) Carbon Dioxide Level 25 MMOL/L (21-32) Anion Gap 6 mmol/L (5-15) Blood Urea Nitrogen 12 mg/dL (7-18) Creatinine 0.6 MG/DL (0.55-1.30) Estimat Glomerular Filtration Rate mL/min (>60) Glucose Level 161 MG/DL (74-106) H Calcium Level 7.4 MG/DL (8.5-10.1) L Last 24 Hour Vital Signs Date Time Temp Pulse Resp B/P (MAP) Pulse Ox O2 Delivery O2 Flow Rate FiO2 08/02/19 04:00 99.3 84 16 109/68 (82) 97 08/02/19 00:00 98.9 79 18 104/63 (77) 97 08/01/19 21:00 Room Air 08/01/19 20:00 99.7 83 16 96/61 (73) 98 08/01/19 18:29 99.1 08/01/19 17:39 70 14 97 08/01/19 16:14 99.1 80 17 111/64 (80) 97 08/01/19 11:36 97.9 72 18 99/65 (76) 97 08/01/19 11:13 Room Air 08/01/19 10:40 60 14 98 08/01/19 10:05 97.9 66 14 119/76 100 Nasal Cannula 3 08/01/19 09:50 71 21 114/79 100 Nasal Cannula 3 08/01/19 09:39 68 20 124/77 100 Nasal Cannula 3 08/01/19 09:29 63 13 120/74 100 Simple Mask 6 08/01/19 09:19 68 14 126/76 100 Simple Mask 6 08/01/19 09:14 65 13 105/66 100 Simple Mask 6 08/01/19 09:09 97.8 60 14 119/72 100 Simple Mask 6 Intake and Output 08/01/19 08/02/19 19:00 07:00 Intake Total 1695 ml 1565 ml Output Total 900 ml 1200 ml Balance 795 ml 365 ml Intake Oral 720 ml 740 ml IV Total 975 ml 825 ml Output Urine Total 800 ml 1200 ml Estimated Blood Loss 100 ml # Voids 1 Laboratory Tests Test 08/02/19 05:50 White Blood Count 5.8 K/UL (4.8-10.8) Red Blood Count 2.85 M/UL (4.20-5.40) L Hemoglobin 9.1 G/DL (12.0-16.0) L Hematocrit 27.5 % (37.0-47.0) L Mean Corpuscular Volume 96 FL (80-99) Mean Corpuscular Hemoglobin 31.9 PG (27.0-31.0) H Mean Corpuscular Hemoglobin Concent 33.1 G/DL (32.0-36.0) Red Cell Distribution Width 11.7 % (11.6-14.8) Platelet Count 179 K/UL (150-450) Mean Platelet Volume 5.3 FL (6.5-10.1) L Neutrophils (%) (Auto) 76.0 % (45.0-75.0) H Lymphocytes (%) (Auto) 13.2 % (20.0-45.0) L Monocytes (%) (Auto) 8.7 % (1.0-10.0) Eosinophils (%) (Auto) 1.6 % (0.0-3.0) Basophils (%) (Auto) 0.5 % (0.0-2.0) Sodium Level 135 MMOL/L (136-145) L Potassium Level 4.5 MMOL/L (3.5-5.1) Chloride Level 104 MMOL/L (98-107) Carbon Dioxide Level 25 MMOL/L (21-32) Anion Gap 6 mmol/L (5-15) Blood Urea Nitrogen 12 mg/dL (7-18) Creatinine 0.6 MG/DL (0.55-1.30) Estimat Glomerular Filtration Rate mL/min (>60) Glucose Level 161 MG/DL (74-106) H Calcium Level 7.4 MG/DL (8.5-10.1) L Wound: clean, dry, intact Drains: none Neuro Status: normal Vascular Status: normal Additional Comments xray reviewed with good reduction of fx Assessment Post-op Diagnosis POD 1 Procedure Performed rt femur ORIF Plan Plan: PT, discharge plan - f/u Dr. Calderón 2 weeks after d/c , other - monitor H&H Alia Rojas Aug 02, 2019 08:21
[2019-08-02] MEDS: Aspirin Baby 81mg ORAL SCH ×2 (08:34→18:01)
[2019-08-02] MEDS: Docusate 100mg cap ORAL SCH ×3 (08:34→18:01)
[2019-08-02] MEDS: Acetaminophen 500mg (ES) tab ORAL SCH ×3 (08:35→18:01)
[2019-08-02] MEDS: Losartan 25mg tab ORAL SCH (08:36)
--- NOTE | 2019-08-02 08:52 | General Progress Note ---
Assessment/Plan Status: stable Assessment/Plan: Ms. Gentile is a 73 year old Persian-speaking female with hx of HTN, osteoporosis s/ p mechanical fall with right displaced femur fracture. now POD 1, s/p open reduction and internal fixation of right femur. 1. Right displaced femur fracture s/p mechanical fall s/p open reduction and internal fixation. POD 1 -Continue pain medications. -vte ppx: ASA and heparin subq,q8hr -PT 2. Anemia- normocytic Blood loss vs blood loss on chronic Check iron panel, ferritin, b12, folate monitor H/H, transfuse as needed 3. Hyperglycemia. Hyponatremia -Check HbA1c. Keep fsbg <180 -Repeat bmp 4. Left hand contusion Xray negative. -Continue to monitor. 5.HTN, controlled -Continue home Losartan 25 -Continue home Amlodipine 5 6.Osteoporosis -Continue Fosamax 70 weekly, dose today. DC planning I spent 40 minutes on this encounter. 50% spent on counselling and care coordination Time of this note may not reflect time of encounter Subjective Date patient seen: Aug 02, 2019 ROS Limited/Unobtainable: No Constitutional: Denies: no symptoms, chills, diaphoresis, fever, malaise, weakness, other HEENT: Denies: no symptoms, eye pain, blurred vision, tearing, double vision, ear pain, ear discharge, nose pain, nose congestion, throat pain, throat swelling, mouth pain, mouth swelling, other Respiratory: Denies: no symptoms, cough, orthopnea, shortness of breath, SOB with excertion, SOB at rest, sputum, stridor, wheezing, other Gastrointestinal/Abdominal: Denies: no symptoms, abdomen distended, abdominal pain, black stools, tarry stools, blood in stool, constipated, diarrhea, difficulty swallowing, nausea, poor appetite, poor fluid intake, rectal bleeding , vomiting, other Genitourinary: Denies: no symptoms, burning, discharge, frequency, flank pain, hematuria, incontinence, pain, urgency, other Neurologic/Psychiatric: Denies: no symptoms, anxiety, depressed, emotional problems, headache, numbness, paresthesia, pre-existing deficit, seizure, tingling, tremors, weakness, other Endocrine: Denies: no symptoms, excessive sweating, flushing, intolerance to cold, intolerance to heat, increased hunger, increased thirst, increased urine, unexplained weight gain, unexplained weight loss, other Hematologic/Lymphatic: Denies: no symptoms, anemia, easy bleeding, easy bruising, other Allergies: Coded Allergies: No Known Allergies (Unverified , 07/29/19) Subjective seen and examined at bedside no overnight events No complaints POD 1 s/p R femur ORIF Objective Last 24 Hour Vital Signs Date Time Temp Pulse Resp B/P (MAP) Pulse Ox O2 Delivery O2 Flow Rate FiO2 08/02/19 04:00 99.3 84 16 109/68 (82) 97 08/02/19 00:00 98.9 79 18 104/63 (77) 97 08/01/19 21:00 Room Air 08/01/19 20:00 99.7 83 16 96/61 (73) 98 08/01/19 18:29 99.1 08/01/19 17:39 70 14 97 08/01/19 16:14 99.1 80 17 111/64 (80) 97 08/01/19 11:36 97.9 72 18 99/65 (76) 97 08/01/19 11:13 Room Air 08/01/19 10:40 60 14 98 08/01/19 10:05 97.9 66 14 119/76 100 Nasal Cannula 3 08/01/19 09:50 71 21 114/79 100 Nasal Cannula 3 08/01/19 09:39 68 20 124/77 100 Nasal Cannula 3 08/01/19 09:29 63 13 120/74 100 Simple Mask 6 08/01/19 09:19 68 14 126/76 100 Simple Mask 6 08/01/19 09:14 65 13 105/66 100 Simple Mask 6 08/01/19 09:09 97.8 60 14 119/72 100 Simple Mask 6 Intake and Output 08/01/19 08/02/19 19:00 07:00 Intake Total 1695 ml 1565 ml Output Total 900 ml 1200 ml Balance 795 ml 365 ml Intake Oral 720 ml 740 ml IV Total 975 ml 825 ml Output Urine Total 800 ml 1200 ml Estimated Blood Loss 100 ml # Voids 1 Laboratory Tests 08/02/19 05:50: White Blood Count 5.8, Red Blood Count 2.85L, Hemoglobin 9.1L, Hematocrit 27.5L , Mean Corpuscular Volume 96, Mean Corpuscular Hemoglobin 31.9H, Mean Corpuscular Hemoglobin Concent 33.1, Red Cell Distribution Width 11.7, Platelet Count 179, Mean Platelet Volume 5.3L, Neutrophils (%) (Auto) 76.0H, Lymphocytes (%) (Auto) 13.2L, Monocytes (%) (Auto) 8.7, Eosinophils (%) (Auto) 1.6, Basophils (%) (Auto) 0.5, Sodium Level 135L, Potassium Level 4.5, Chloride Level 104, Carbon Dioxide Level 25, Anion Gap 6, Blood Urea Nitrogen 12, Creatinine 0.6, Estimat Glomerular Filtration Rate , Glucose Level 161H, Calcium Level 7.4L Height (Feet): 5 Height (Inches): 2.00 Weight (Pounds): 141 Objective General Appearance: no apparent distress, alert Lines, tubes and drains: peripheral HEENT: normocephalic, atraumatic, anicteric Neck: supple, no jvd Respiratory/Chest: lungs clear, normal breath sounds, no respiratory distress, no accessory muscle use Cardiovascular/Chest: normal rate, regular rhythm, no gallop/murmur Abdomen: normal bowel sounds, non tender, soft Neurologic: alert, oriented x 3, responsive, other - legs with normal sensation bilaterally. Musculoskeletal: normal muscle bulk skin: no rashes or ulcers You Warner M.D. Aug 02, 2019 08:52
[2019-08-02 09:26] LABS: % IRON SATURATION 11 % (15-50); IRON 23 ug/dL (50-175); TOTAL IRON BINDING CAPACITY 211 ug/dL (250-450)
[2019-08-02 09:59] LABS: FERRITIN 115 NG/ML (8-388)
--- NOTE | 2019-08-02 11:23 | NUR ---
*-* INSURANCE *-* ALL CLINICALS AND REVIEWS HAVE BEEN FAXED TO: [facility] No human services case manager assigned yet Case#[id number] #[phone]
[2019-08-02 12:00] VITALS: BP 123/65
--- NOTE | 2019-08-02 13:31 | NUR ---
SHOCK ABSORPTION FLOOR LAYERVENTILATOR SPECIALIST SI: FX RIGHT FEMUR S/P ORIF T. 100.1 HR 83 RR 18 B/P 123/65 IS: HEPARIN SUBC PROTONIX COLACE PO DCP TO SNF VS ARU MED/SURG STATUS
[2019-08-02] MEDS ORDERED: D5 1/2NS 1000ml IV ONE (15:55)
[2019-08-02 16:00] VITALS: BP 116/69
--- NOTE | 2019-08-02 19:30 | NUR ---
NURSE NOTES: Receive a report from JEFFREY Wall. Round is done. Pt is awake and alert, sitting on the chair. Op site on right leg keep dry and clean. Denies pain except ambulating. Done routine pain medication from AM shift. Addendum: 08/02/19 at 2005 by Concha Hardy RN Garcia catheter inserted state and patent with yellowish urine. Able to walk to bathroom using walker without weight bearing on right leg. Done small amount of vomiting but no noted nausea sensation. Encourage to get medication at any time. Call light within reach. Will continue to monitor.
--- NOTE | 2019-08-02 19:57 | NUR ---
HAND-OFF: Report given to Kevino RN. Patient is stable.
[2019-08-02 20:00] VITALS: BP 106/61
--- NOTE | 2019-08-02 21:30 | NUR ---
NURSE NOTES: After Zofran IVS for nausea sensation, pt feels comfortable. Adjust bed for sleep. SCDs on. Denies pain at this time. Will continue to monitor.
[2019-08-03] VITALS: BP 113/65
[2019-08-03 04:30] VITALS: BP 116/69
[2019-08-03] MEDS: Heparin 5000 units/ml inj SUBQ SCH ×3 (05:55→21:23)
--- NOTE | 2019-08-03 06:00 | NUR ---
NURSE NOTES: Pt is up early and wants to get out of bed. Assist to chair. Denies pain. Noted decreased swelling on right knee. No nausea/vomiting noted. Assist morning care. Encourage to do I/S with coughing. NO chilling or febrile sensation. Will continue to monitor.
[2019-08-03 06:15] LABS: BASOPHILS % (AUTO) 0.5 % (0.0-2.0); EOSINOPHILS % (AUTO) 2.8 % (0.0-3.0); HEMATOCRIT 25.8 % (37.0-47.0); HEMOGLOBIN 8.5 G/DL (12.0-16.0); LYMPHOCYTES % (AUTO) 16.6 % (20.0-45.0); MEAN CORPUSCULAR VOLUME 97 FL (80-99); MONOCYTES % (AUTO) 9.5 % (1.0-10.0); NEUTROPHILS % (AUTO) 70.6 % (45.0-75.0); PLATELET COUNT 200 K/UL (150-450); RED BLOOD COUNT 2.66 M/UL (4.20-5.40); RED CELL DISTRIBUTION WIDTH 11.8 % (11.6-14.8); WHITE BLOOD COUNT 6.1 K/UL (4.8-10.8)
[2019-08-03 07:00] LABS: ANION GAP 6 mmol/L (5-15); BLOOD UREA NITROGEN 13 mg/dL (7-18); CALCIUM 7.9 MG/DL (8.5-10.1); CARBON DIOXIDE 26 MMOL/L (21-32); CHLORIDE 106 MMOL/L (98-107); CREATININE 0.5 MG/DL (0.55-1.30); POTASSIUM 4.6 MMOL/L (3.5-5.1); SODIUM 138 MMOL/L (136-145)
--- NOTE | 2019-08-03 07:30 | NUR ---
NURSE NOTES: Patient is sitting up in chair. Stable. Denies pain or SOB. Patient encouraged to use call light for assistance, verbalized understanding. Patient instructed to keep leg elevated, patient verbalized understanding. Patient has call light within reach. All safety measures provided. WIll continue to monitor.
--- NOTE | 2019-08-03 07:30 | NUR ---
HAND-OFF: Report given to JEFFREY Wall. Round is done. Having breakfast.
[2019-08-03 08:00] VITALS: BP 103/66
[2019-08-03] MEDS: Docusate 100mg cap ORAL SCH ×3 (08:55→18:14)
[2019-08-03] MEDS: Losartan 25mg tab ORAL SCH (08:55)
[2019-08-03] MEDS: Acetaminophen 500mg (ES) tab ORAL SCH ×3 (08:55→18:15)
[2019-08-03] MEDS: Aspirin Baby 81mg ORAL SCH ×2 (08:55→18:14)
--- NOTE | 2019-08-03 09:33 | General Progress Note ---
Assessment/Plan Status: stable Assessment/Plan: Ms. Gentile is a 73 year old Indonesian-speaking female with hx of HTN, osteoporosis s/ p mechanical fall with right displaced femur fracture. now POD 2, s/p open reduction and internal fixation of right femur. 1. Right displaced femur fracture s/p mechanical fall s/p open reduction and internal fixation. POD 2 -Continue pain medications. -vte ppx: ASA and heparin subq,q8hr -PT --> SNF 2. Anemia- normocytic Blood loss vs blood loss on chronic Has iron deficiency, b12 and folate also low monitor H/H, transfuse as needed Start iron sulphate TID, B12 and folic acid 3. Hyperglycemia. Hyponatremia -Keep fsbg <180. HbA1c 5.7 -Repeat bmp, sodium normal 4. Left hand contusion Xray negative. -Continue to monitor. 5.HTN, controlled -Continue home Losartan 25 -Continue home Amlodipine 5 6.Osteoporosis -Continue Fosamax 70 weekly, dose today. DC planning I spent 40 minutes on this encounter. 50% spent on counselling and care coordination Time of this note may not reflect time of encounter Subjective Date patient seen: Aug 03, 2019 ROS Limited/Unobtainable: No Constitutional: Denies: no symptoms, chills, diaphoresis, fever, malaise, weakness, other HEENT: Denies: no symptoms, eye pain, blurred vision, tearing, double vision, ear pain, ear discharge, nose pain, nose congestion, throat pain, throat swelling, mouth pain, mouth swelling, other Cardiovascular: Denies: no symptoms, chest pain, edema, irregular heart rate, lightheadedness, palpitations, syncope, other Respiratory: Denies: no symptoms, cough, orthopnea, shortness of breath, SOB with excertion, SOB at rest, sputum, stridor, wheezing, other Gastrointestinal/Abdominal: Denies: no symptoms, abdomen distended, abdominal pain, black stools, tarry stools, blood in stool, constipated, diarrhea, difficulty swallowing, nausea, poor appetite, poor fluid intake, rectal bleeding , vomiting, other Genitourinary: Denies: no symptoms, burning, discharge, frequency, flank pain, hematuria, incontinence, pain, urgency, other Neurologic/Psychiatric: Denies: no symptoms, anxiety, depressed, emotional problems, headache, numbness, paresthesia, pre-existing deficit, seizure, tingling, tremors, weakness, other Endocrine: Denies: no symptoms, excessive sweating, flushing, intolerance to cold, intolerance to heat, increased hunger, increased thirst, increased urine, unexplained weight gain, unexplained weight loss, other Hematologic/Lymphatic: Denies: no symptoms, anemia, easy bleeding, easy bruising, other Allergies: Coded Allergies: No Known Allergies (Unverified , 07/29/19) Subjective seen and examined at bedside no overnight events No complaints POD 2 s/p R femur ORIF Objective Last 24 Hour Vital Signs Date Time Temp Pulse Resp B/P (MAP) Pulse Ox O2 Delivery O2 Flow Rate FiO2 08/03/19 08:55 103/66 08/03/19 04:30 98.3 83 18 116/69 (85) 95 08/03/19 00:00 98.4 74 18 113/65 (81) 93 08/02/19 21:00 Room Air 08/02/19 20:00 98.9 78 18 106/61 (76) 94 08/02/19 16:00 98.3 71 18 116/69 (85) 95 08/02/19 12:00 98.6 78 19 123/65 (84) 95 Intake and Output 08/02/19 08/03/19 19:00 07:00 Intake Total 900 ml 300 ml Output Total 1400 ml 2800 ml Balance -500 ml -2500 ml Intake Oral 900 ml 300 ml Output Urine Total 1400 ml 2800 ml Laboratory Tests 08/03/19 05:15: White Blood Count 6.1, Red Blood Count 2.66L, Hemoglobin 8.5L, Hematocrit 25.8L , Mean Corpuscular Volume 97, Mean Corpuscular Hemoglobin 31.9H, Mean Corpuscular Hemoglobin Concent 32.9, Red Cell Distribution Width 11.8, Platelet Count 200, Mean Platelet Volume 4.8L, Neutrophils (%) (Auto) 70.6, Lymphocytes ( %) (Auto) 16.6L, Monocytes (%) (Auto) 9.5, Eosinophils (%) (Auto) 2.8, Basophils (%) (Auto) 0.5, Sodium Level 138, Potassium Level 4.6, Chloride Level 106, Carbon Dioxide Level 26, Anion Gap 6, Blood Urea Nitrogen 13, Creatinine 0.5L, Estimat Glomerular Filtration Rate , Glucose Level 132H, Calcium Level 7.9L Height (Feet): 5 Height (Inches): 2.00 Weight (Pounds): 141 Objective General Appearance: no apparent distress, alert Lines, tubes and drains: peripheral HEENT: normocephalic, atraumatic, anicteric Neck: supple, no jvd Respiratory/Chest: lungs clear, normal breath sounds, no respiratory distress, no accessory muscle use Cardiovascular/Chest: normal rate, regular rhythm, no gallop/murmur Abdomen: normal bowel sounds, non tender, soft Neurologic: alert, oriented x 3, responsive, other - legs with normal sensation bilaterally. Musculoskeletal: normal muscle bulk skin: no rashes or ulcers You Warnre M.D. Aug 03, 2019 09:33
[2019-08-03] MEDS ORDERED: Vitamin B12 1000mcg/ml Inj IM ONE (10:00)
--- NOTE | 2019-08-03 11:00 | NUR ---
NURSE NOTES: Dressing change done by mary jo Landa RN. Patient tolerated well.
[2019-08-03 12:00] VITALS: BP 100/58
--- NOTE | 2019-08-03 14:00 | NUR ---
NURSE NOTES: Patient urinated into toilet. Denies discomfort or burning. Raised toilet seat with side rails in place for safety.
--- NOTE | 2019-08-03 15:31 | NUR ---
*-* INSURANCE *-* ALL CLINICALS AND REVIEWS HAVE BEEN FAXED TO: [facility] No case managers assigned yet Case#[id number] #[phone]
[2019-08-03 16:00] VITALS: BP 121/68
--- NOTE | 2019-08-03 19:30 | NUR ---
HAND-OFF: Report given to Corrine RN. Patient is stable.
[2019-08-03 20:00] VITALS: BP 111/70
--- NOTE | 2019-08-03 20:14 | NUR ---
NURSE NOTES: RECEIVED PT FROM JEFFREY CHAVARRIA. PT IS AWAKE, AAOX4, ON ROOM AIR, NO ACUTE DISTRESS NOTED. FAMILY MEMBER AT BEDSIDE. SCD IS APPLIED AND RUNNING. COMMODE PRESENT AT BEDSIDE. DRESSINGS ON RIGHT FEMUR IS INTACT AND DRY. ICE PACKS PROVIDED. BED IS LOCKED AND LOW, BED ALARMS ACTIVE, SIDE RAILS UP X2 AND CALL LIGHT IS WITHIN REACH. WILL CONTINUE TO MONITOR.
[2019-08-04] VITALS: BP 104/65
[2019-08-04 04:00] VITALS: BP 119/68
--- NOTE | 2019-08-04 04:30 | NUR ---
NURSE NOTES: PT IS ASLEEP. VSS. PROVIDED PT WITH ICE PACKS.
[2019-08-04] MEDS: Heparin 5000 units/ml inj SUBQ SCH ×3 (05:25→21:05)
[2019-08-04 06:40] LABS: BASOPHILS % (AUTO) 0.8 % (0.0-2.0); EOSINOPHILS % (AUTO) 5.8 % (0.0-3.0); HEMATOCRIT 25.2 % (37.0-47.0); HEMOGLOBIN 8.4 G/DL (12.0-16.0); LYMPHOCYTES % (AUTO) 25.4 % (20.0-45.0); MEAN CORPUSCULAR VOLUME 96 FL (80-99); MONOCYTES % (AUTO) 6.3 % (1.0-10.0); NEUTROPHILS % (AUTO) 61.8 % (45.0-75.0); PLATELET COUNT 227 K/UL (150-450); RED BLOOD COUNT 2.62 M/UL (4.20-5.40); RED CELL DISTRIBUTION WIDTH 11.7 % (11.6-14.8); WHITE BLOOD COUNT 6.1 K/UL (4.8-10.8)
[2019-08-04 06:51] LABS: ANION GAP 7 mmol/L (5-15); BLOOD UREA NITROGEN 15 mg/dL (7-18); CALCIUM 7.9 MG/DL (8.5-10.1); CARBON DIOXIDE 28 MMOL/L (21-32); CHLORIDE 104 MMOL/L (98-107); CREATININE 0.5 MG/DL (0.55-1.30); POTASSIUM 4.1 MMOL/L (3.5-5.1); SODIUM 139 MMOL/L (136-145)
--- NOTE | 2019-08-04 07:15 | NUR ---
HAND-OFF: Report given to JEFFREY DILLON.
--- NOTE | 2019-08-04 07:20 | NUR ---
NURSE NOTES: received patient is sitting up in chair.patient awake, alert. oriented x4, Denies pain, HL patent, on fall precaution , instructed to keep leg elevated, call light within reach. All safety measures provided. WIll continue to monitor. wiley meek
[2019-08-04 08:00] VITALS: BP 111/78
[2019-08-04] MEDS: Acetaminophen 500mg (ES) tab ORAL SCH ×3 (08:09→17:20)
[2019-08-04] MEDS: Losartan 25mg tab ORAL SCH (08:09)
[2019-08-04] MEDS: Docusate 100mg cap ORAL SCH ×3 (08:10→17:20)
[2019-08-04] MEDS: Aspirin Baby 81mg ORAL SCH ×2 (08:10→17:19)
[2019-08-04] MEDS ORDERED: Vitamin B12 1000mcg/ml Inj IM ONE (11:00)
[2019-08-04 12:00] VITALS: BP 119/65
--- NOTE | 2019-08-04 13:10 | NUR ---
ASSISTANCE SPECIALISTADULT CAREGIVER SI: POD S/P ORIF RIGHT FEMUR T. 97.1 HR 87 RR 18 B/P 119/65 CR 0.5 IS: PROTONIX PO COZAAR PO HEPARIN SUBC MED/SURG STATUS
--- NOTE | 2019-08-04 13:22 | NUR ---
*-* DISCHARGE PLANNING *-* PATIENT HAS BEEN REFERRED TO: [facility] P: [phone] F: [phone]
--- NOTE | 2019-08-04 14:25 | General Progress Note ---
Assessment/Plan Status: stable Assessment/Plan: Ms. Gentile is a 73 year old Estonian-speaking female with hx of HTN, osteoporosis s/ p mechanical fall with right displaced femur fracture. now POD 3, s/p open reduction and internal fixation of right femur. 1. Right displaced femur fracture s/p mechanical fall s/p open reduction and internal fixation. POD 3 -Continue pain medications. -vte ppx: ASA and heparin subq,q8hr -PT --> SNF ( waiting to hear from [facility]) 2. Anemia- normocytic Blood loss vs blood loss on chronic- stable Has iron deficiency, b12 and folate also low monitor H/H, transfuse as needed Start iron sulphate TID, B12 and folic acid 3. Hyperglycemia. Hyponatremia -Keep fsbg <180. HbA1c 5.7 -Repeat bmp, sodium normal 4. Left hand contusion Xray negative. -Continue to monitor. 5.HTN, controlled -Continue home Losartan 25 -Continue home Amlodipine 5 6.Osteoporosis -Continue Fosamax 70 weekly, dose today. DC planning --> SNF-->[facility] I spent 40 minutes on this encounter. 50% spent on counselling and care coordination Time of this note may not reflect time of encounter Subjective Date patient seen: Aug 04, 2019 ROS Limited/Unobtainable: No Constitutional: Denies: no symptoms, chills, diaphoresis, fever, malaise, weakness, other HEENT: Denies: no symptoms, eye pain, blurred vision, tearing, double vision, ear pain, ear discharge, nose pain, nose congestion, throat pain, throat swelling, mouth pain, mouth swelling, other Cardiovascular: Denies: no symptoms, chest pain, edema, irregular heart rate, lightheadedness, palpitations, syncope, other Respiratory: Denies: no symptoms, cough, orthopnea, shortness of breath, SOB with excertion, SOB at rest, sputum, stridor, wheezing, other Gastrointestinal/Abdominal: Denies: no symptoms, abdomen distended, abdominal pain, black stools, tarry stools, blood in stool, constipated, diarrhea, difficulty swallowing, nausea, poor appetite, poor fluid intake, rectal bleeding , vomiting, other Neurologic/Psychiatric: Denies: no symptoms, anxiety, depressed, emotional problems, headache, numbness, paresthesia, pre-existing deficit, seizure, tingling, tremors, weakness, other Endocrine: Denies: no symptoms, excessive sweating, flushing, intolerance to cold, intolerance to heat, increased hunger, increased thirst, increased urine, unexplained weight gain, unexplained weight loss, other Hematologic/Lymphatic: Denies: no symptoms, anemia, easy bleeding, easy bruising, other Allergies: Coded Allergies: No Known Allergies (Unverified , 07/29/19) Subjective seen and examined at bedside POD 3 s/p R femur ORIF Ambulating independently using walker waiting rehab placement Objective Last 24 Hour Vital Signs Date Time Temp Pulse Resp B/P (MAP) Pulse Ox O2 Delivery O2 Flow Rate FiO2 08/04/19 12:00 97.1 87 18 119/65 (83) 98 08/04/19 08:10 Room Air 08/04/19 08:09 119/68 08/04/19 08:00 97.6 69 18 111/78 (89) 98 08/04/19 04:00 98.6 77 18 119/68 (85) 94 08/04/19 00:00 98.2 79 18 104/65 (78) 96 08/03/19 21:00 Room Air 08/03/19 20:00 98.6 85 20 111/70 (84) 96 08/03/19 16:00 98.0 83 20 121/68 (85) 98 Intake and Output 08/03/19 08/04/19 19:00 07:00 Intake Total 400 ml Balance 400 ml Intake Oral 400 ml # Voids 3 1 Laboratory Tests 08/04/19 04:45: White Blood Count 6.1, Red Blood Count 2.62L, Hemoglobin 8.4L, Hematocrit 25.2L , Mean Corpuscular Volume 96, Mean Corpuscular Hemoglobin 32.2H, Mean Corpuscular Hemoglobin Concent 33.5, Red Cell Distribution Width 11.7, Platelet Count 227, Mean Platelet Volume 4.9L, Neutrophils (%) (Auto) 61.8, Lymphocytes ( %) (Auto) 25.4, Monocytes (%) (Auto) 6.3, Eosinophils (%) (Auto) 5.8H, Basophils (%) (Auto) 0.8, Sodium Level 139, Potassium Level 4.1, Chloride Level 104, Carbon Dioxide Level 28, Anion Gap 7, Blood Urea Nitrogen 15, Creatinine 0.5L, Estimat Glomerular Filtration Rate , Glucose Level 118H, Calcium Level 7.9L Height (Feet): 5 Height (Inches): 2.00 Weight (Pounds): 141 Objective General Appearance: no apparent distress, alert Lines, tubes and drains: peripheral HEENT: normocephalic, atraumatic, anicteric Neck: supple, no jvd Respiratory/Chest: lungs clear, normal breath sounds, no respiratory distress, no accessory muscle use Cardiovascular/Chest: normal rate, regular rhythm, no gallop/murmur Abdomen: normal bowel sounds, non tender, soft Neurologic: alert, oriented x 3, responsive, other - legs with normal sensation bilaterally. Musculoskeletal: normal muscle bulk skin: no rashes or ulcers You Warner M.D. Aug 04, 2019 14:25
[2019-08-04] MEDS ORDERED: HEPARIN SO5000 UNIT2 SUBQ (14:33)
[2019-08-04] MEDS ORDERED: NORCO 5-325 TA1 EACH ORAL (14:33)
[2019-08-04] MEDS ORDERED: ASPIRIN81 MG ORAL (14:33)
[2019-08-04] MEDS ORDERED: FEOSOL325 MG ORAL (14:33)
[2019-08-04] MEDS ORDERED: PANTOPRAZOLE SO40 MG ORAL (14:33)
[2019-08-04] MEDS ORDERED: VITAMIN B-12500 MCG ORAL (14:33)
[2019-08-04] MEDS ORDERED: FOLIC ACID1 MG ORAL (14:33)
[2019-08-04] MEDS ORDERED: COLACE100 MG ORAL (14:33)
--- NOTE | 2019-08-04 14:56 | NUR ---
*-* INSURANCE *-* UPDATED CLINICALS AND REVIEWS HAVE BEEN FAXED TO: [facility] No family preservation caseworker assigned yet Case#[id number] #[phone]
[2019-08-04 16:00] VITALS: BP 113/66
--- NOTE | 2019-08-04 16:54 | NUR ---
DISCHARGE PLANNING DISCHARGE ORDER NOTED Patient has been accepted to; [facility] [address] [place] [address] Bed: 12-A Skilled [phone] for Nurse to Nurse report [facility] ETA for transportation: 18:15
--- NOTE | 2019-08-04 17:59 | NUR ---
nurse notes patient able to walk using a FWW more than 70 feet with stand by assist,goes to the bathroom by herself using a walker ,instructed patient to call for assistance verbalized understanding wiley meek
--- NOTE | 2019-08-04 19:30 | NUR ---
NURSE NOTES: Receive a report from JEFFREY Cordon. Round is done. Pt is awake and alert, sitting on chair on the phone. No acute distress noted. Denies pain. Call light within reach. Will continue to monitor.
--- NOTE | 2019-08-04 19:33 | NUR ---
nurse notes report given to Ms OH, Patient stable wiley meek
[2019-08-04 20:00] VITALS: BP 101/64
--- NOTE | 2019-08-04 20:00 | NUR ---
NURSE NOTES: Found out the note from clinic office manager of discharge placement. Contact the Rehabilitation for expecting admission. Waiting for answering. Will continue to follow up. Pt and son made aware the situation.
--- NOTE | 2019-08-04 20:30 | NUR ---
NURSE NOTES: Spoke to Jammie, Charge nurse in [facility] and said that the facility is expecting patient's admission on Wednesday. But pt can admit on Wednesday, tomorrow. Will follow up with MD for discharge order and pt and at bed side made aware.
--- NOTE | 2019-08-04 20:50 | NUR ---
NURSE NOTES: Made aware Dr. Kaye, covering Dr for Dr. Farias about delayed pt's discharge tomorrow.
--- NOTE | 2019-08-04 20:52 | NUR ---
NURSE NOTES: [facility] that admission coordinator informed of pt's admission on Wednesday d/t insurance authorization. Will continue to follow up. Update to pt and .
--- NOTE | 2019-08-04 21:15 | NUR ---
NURSE NOTES: Op site done with gauze and tegarderm. No bleeding signs noted except discoloration. Denies pain. Keep elevated right leg for edema and SCDs on bilateral legs. Call light within reach. Will continue to monitor.
[2019-08-05] VITALS: BP 113/67
[2019-08-05 04:00] VITALS: BP 116/69
[2019-08-05] MEDS: Heparin 5000 units/ml inj SUBQ SCH ×3 (05:49→21:26)
--- NOTE | 2019-08-05 07:50 | NUR ---
HAND-OFF: Report given to CN. Faisal
[2019-08-05 08:00] VITALS: BP 105/62
[2019-08-05] MEDS: Losartan 25mg tab ORAL SCH (09:01)
[2019-08-05] MEDS: Acetaminophen 500mg (ES) tab ORAL SCH ×3 (09:03→18:08)
[2019-08-05] MEDS: Aspirin Baby 81mg ORAL SCH ×2 (09:03→18:08)
[2019-08-05] MEDS: Docusate 100mg cap ORAL SCH ×3 (09:03→18:08)
[2019-08-05] MEDS: Vitamin B-12 500mcg tab ORAL SCH (09:03)
--- NOTE | 2019-08-05 10:39 | NUR ---
NURSE NOTES: Patient is sitting up in bed. Stable. Denies pain or SOB. Patient's son is at bedside. Called [facility] about discharge, still waiting for transfer to rehab depending on insurance. Patient is in bed in locked and lowest position with call light within reach. All safety measures provided. Will continue to monitor.
[2019-08-05 12:00] VITALS: BP 122/64
--- NOTE | 2019-08-05 15:00 | NUR ---
NURSE NOTES: Spoke to Candy at [facility] regarding transfer. Facility cannot accept her at this time until admission coordinator responds. Awaiting response.
[2019-08-05 16:00] VITALS: BP 123/70
--- NOTE | 2019-08-05 18:56 | NUR ---
NURSE NOTES: [facility] admission coordinator did not respond within shift. Unable to transfer patient. Will endorse to next shift.
--- NOTE | 2019-08-05 19:24 | NUR ---
HAND-OFF: Report given to Nick MURPHY. Patient is stable.
--- NOTE | 2019-08-05 19:30 | NUR ---
NURSE NOTES: Received report from JEFFREY Wall. Received pt in bed, AOx4, denies any pain, Belarusian and Croatian speaking, no distress noted. Right hip surgical dressing C/D/I with bruises noted, neuro check wnl. IV L hand patent and intact. Bed in lowest position and locked, side rails up x 2, call light within reach. Will continue to monitor.
[2019-08-05 20:00] VITALS: BP 126/71
--- NOTE | 2019-08-05 23:48 | General Progress Note ---
Assessment/Plan Problem List: (1) Femur fracture, right ICD Codes: S72.91XA - Unspecified fracture of right femur, initial encounter for closed fracture SNOMED: 24632619 Qualifiers: Qualified Codes: S72.331A - Displaced oblique fracture of shaft of right femur, initial encounter for closed fracture (2) Contusion of left hand ICD Codes: S60.222A - Contusion of left hand, initial encounter SNOMED: 8709664 Qualifiers: Qualified Codes: S60.222A - Contusion of left hand, initial encounter (3) HTN (hypertension) ICD Codes: I10 - Essential (primary) hypertension SNOMED: 18411500 Qualifiers: Qualified Codes: I10 - Essential (primary) hypertension (4) Osteoporosis ICD Codes: M81.0 - Age-related osteoporosis without current pathological fracture SNOMED: 96385084 Qualifiers: Status: stable, progressing Assessment/Plan: Ms. Gentile is a 73 year old Bengali-speaking female with hx of HTN, osteoporosis s/ p mechanical fall with right displaced femur fracture. now POD 5, s/p open reduction and internal fixation of right femur. 1. Right displaced femur fracture s/p mechanical fall s/p open reduction and internal fixation. POD 5 -Continue pain medications. -vte ppx: ASA and heparin subq,q8hr -PT --> SNF ( waiting for insurance authorization) 2. Anemia- normocytic Blood loss vs blood loss on chronic- stable Has iron deficiency, b12 and folate also low monitor H/H, transfuse as needed Continue iron sulfate TID, B12 and folic acid 3. Hyperglycemia. Hyponatremia -Keep fsbg <180. HbA1c 5.7 -Repeat bmp, sodium normal 4. Left hand contusion Xray negative. -Continue to monitor. 5.HTN, controlled -Continue home Losartan 25 -Continue home Amlodipine 5 6.Osteoporosis -Continue Fosamax 70 weekly, dose today. DC planning --> SNF-->[facility] I spent 27 minutes on this encounter. 50% spent on counselling and care coordination. Time of this note may not reflect time of encounter Subjective Date patient seen: Aug 05, 2019 Time patient seen: 09:30 Constitutional: Denies: chills, diaphoresis, fever, malaise, weakness, other HEENT: Denies: eye pain, blurred vision, tearing, double vision, ear pain, ear discharge, nose pain, nose congestion, throat pain, throat swelling, mouth pain , mouth swelling, other Cardiovascular: Denies: chest pain, edema, irregular heart rate, lightheadedness, palpitations, syncope, other Respiratory: Denies: cough, orthopnea, shortness of breath, SOB with excertion , SOB at rest, sputum, stridor, wheezing, other Gastrointestinal/Abdominal: Denies: abdomen distended, abdominal pain, black stools, tarry stools, blood in stool, constipated, diarrhea, difficulty swallowing, nausea, poor appetite, poor fluid intake, rectal bleeding, vomiting , other Genitourinary: Denies: burning, discharge, frequency, flank pain, hematuria, incontinence, pain, urgency, other Neurologic/Psychiatric: Denies: anxiety, depressed, emotional problems, headache, numbness, paresthesia, pre-existing deficit, seizure, tingling, tremors, weakness, other Endocrine: Denies: excessive sweating, flushing, intolerance to cold, intolerance to heat, increased hunger, increased thirst, increased urine, unexplained weight gain, unexplained weight loss, other Hematologic/Lymphatic: Reports: no symptoms; Denies: anemia, easy bleeding, easy bruising, other Allergies: Coded Allergies: No Known Allergies (Unverified , 07/29/19) Subjective No acute events overnight. Pain is controlled. No drainage from wound. No fevers or chills. Ready to go to [facility]. Pending insurance approval Objective Last 24 Hour Vital Signs Date Time Temp Pulse Resp B/P (MAP) Pulse Ox O2 Delivery O2 Flow Rate FiO2 08/05/19 21:00 Room Air 08/05/19 20:00 98.8 88 17 126/71 (89) 96 08/05/19 16:00 98.8 77 18 123/70 (87) 98 08/05/19 12:00 98.7 72 18 122/64 (83) 96 08/05/19 10:55 Room Air 08/05/19 09:01 105/62 08/05/19 08:00 97.5 90 18 105/62 (76) 97 08/05/19 04:00 97.8 73 16 116/69 (85) 96 08/05/19 00:00 98.2 76 16 113/67 (82) 98 Intake and Output 08/04/19 08/05/19 19:00 07:00 Intake Total 1280 ml 150 ml Balance 1280 ml 150 ml Intake Oral 1280 ml 150 ml # Voids 3 3 Height (Feet): 5 Height (Inches): 2.00 Weight (Pounds): 141 General Appearance: WD/WN, no apparent distress, alert EENT: PERRL/EOMI Neck: non-tender, normal alignment, supple Cardiovascular: normal peripheral pulses, normal rate, regular rhythm, regularly irregular Respiratory/Chest: chest wall non-tender, lungs clear, normal breath sounds, no respiratory distress, no accessory muscle use Abdomen: normal bowel sounds, non tender, soft, no organomegaly Extremities: other - Right leg with bandage over ORIF incision, surrounding echymoses and edema. No erythema or drainage. mildly TTP Neurologic: grinder brake lining II-XII grossly normal, no motor/sensory deficits, alert, oriented x 3 Skin: normal pigmentation, warm/dry Linwood Young D.O. Aug 05, 2019 23:48
[2019-08-06] VITALS: BP 119/71
[2019-08-06 05:00] VITALS: BP 121/80
[2019-08-06] MEDS: Heparin 5000 units/ml inj SUBQ SCH ×3 (05:06→21:04)
--- NOTE | 2019-08-06 05:30 | NUR ---
NURSE NOTES: Dressing change done to right hip. Applied 4x4 gauze and tegaderm, C/D/I.
--- NOTE | 2019-08-06 07:31 | NUR ---
HAND-OFF: Report given to JEFFREY Romero. Pt in stable condition.
--- NOTE | 2019-08-06 07:40 | NUR ---
NURSE NOTES: Received report from JEFFREY Romero. Rounding done with outgoing nurse. Pt a/o x 4, in bed. Denies any pain at this time. Bed in lowest position, call light within reach. Walker within reach. Will continue to monitor.
[2019-08-06 08:00] VITALS: BP 105/64
[2019-08-06] MEDS: Docusate 100mg cap ORAL SCH ×3 (08:34→17:35)
[2019-08-06] MEDS: Aspirin Baby 81mg ORAL SCH ×2 (08:34→17:35)
[2019-08-06] MEDS: Vitamin B-12 500mcg tab ORAL SCH (08:34)
[2019-08-06] MEDS: Losartan 25mg tab ORAL SCH (08:36)
[2019-08-06] MEDS: Acetaminophen 500mg (ES) tab ORAL SCH ×3 (08:36→17:36)
[2019-08-06 12:00] VITALS: BP 107/62
--- NOTE | 2019-08-06 15:38 | NUR ---
NURSE NOTES: Left the message to Lindsay caseworker regarding pt and pt's family wants to go to [facility] instead of [facility].
[2019-08-06 16:00] VITALS: BP 115/76
--- NOTE | 2019-08-06 19:10 | NUR ---
HAND-OFF: Report given to JEFFREY Romero. Pt is stable.
--- NOTE | 2019-08-06 19:30 | NUR ---
NURSE NOTES: Received report from JEFFREY Romero. Received pt in bed, AOx4, denies any pain, no distress noted. Surgical dressing C/D/I/ Neuro check wnl. IV left hand patent and intact. Bed in lowest position and locked, side rails up x 2, call light within reach. Will continue to monitor.
[2019-08-06 20:00] VITALS: BP 102/63
--- NOTE | 2019-08-06 21:16 | General Progress Note ---
Assessment/Plan Problem List: (1) Femur fracture, right ICD Codes: S72.91XA - Unspecified fracture of right femur, initial encounter for closed fracture SNOMED: 87993831 Qualifiers: Qualified Codes: S72.331A - Displaced oblique fracture of shaft of right femur, initial encounter for closed fracture (2) Contusion of left hand ICD Codes: S60.222A - Contusion of left hand, initial encounter SNOMED: 6841113 Qualifiers: Qualified Codes: S60.222A - Contusion of left hand, initial encounter (3) HTN (hypertension) ICD Codes: I10 - Essential (primary) hypertension SNOMED: 92662688 Qualifiers: Qualified Codes: I10 - Essential (primary) hypertension (4) Osteoporosis ICD Codes: M81.0 - Age-related osteoporosis without current pathological fracture SNOMED: 42846281 Qualifiers: Status: stable, progressing Assessment/Plan: Ms. Gentile is a 73 year old Slovenian-speaking female with hx of HTN, osteoporosis s/ p mechanical fall with right displaced femur fracture. now POD 5, s/p open reduction and internal fixation of right femur. 1. Right displaced femur fracture s/p mechanical fall s/p open reduction and internal fixation. POD 5 -Continue pain medications. -vte ppx: ASA and heparin subq,q8hr -PT --> SNF ( waiting for insurance authorization) 2. Anemia- normocytic Blood loss vs blood loss on chronic- stable Has iron deficiency, b12 and folate also low monitor H/H, transfuse as needed Continue iron sulfate TID, B12 and folic acid 3. Hyperglycemia. Hyponatremia -Keep fsbg <180. HbA1c 5.7 -Repeat bmp, sodium normal 4. Left hand contusion Xray negative. -Continue to monitor. 5.HTN, controlled -Continue home Losartan 25 -Continue home Amlodipine 5 6.Osteoporosis -Continue Fosamax 70 weekly, dose today. DC planning --> SNF-->[facility] I spent 27 minutes on this encounter. 50% spent on counselling and care coordination. Time of this note may not reflect time of encounter Subjective Date patient seen: Aug 06, 2019 Constitutional: Denies: no symptoms, chills, diaphoresis, fever, malaise, weakness, other HEENT: Denies: no symptoms, eye pain, blurred vision, tearing, double vision, ear pain, ear discharge, nose pain, nose congestion, throat pain, throat swelling, mouth pain, mouth swelling, other Cardiovascular: Denies: no symptoms, chest pain, edema, irregular heart rate, lightheadedness, palpitations, syncope, other Respiratory: Denies: no symptoms, cough, orthopnea, shortness of breath, SOB with excertion, SOB at rest, sputum, stridor, wheezing, other Gastrointestinal/Abdominal: Denies: no symptoms, abdomen distended, abdominal pain, black stools, tarry stools, blood in stool, constipated, diarrhea, difficulty swallowing, nausea, poor appetite, poor fluid intake, rectal bleeding , vomiting, other Genitourinary: Denies: no symptoms, burning, discharge, frequency, flank pain, hematuria, incontinence, pain, urgency, other Neurologic/Psychiatric: Denies: no symptoms, anxiety, depressed, emotional problems, headache, numbness, paresthesia, pre-existing deficit, seizure, tingling, tremors, weakness, other Endocrine: Denies: no symptoms, excessive sweating, flushing, intolerance to cold, intolerance to heat, increased hunger, increased thirst, increased urine, unexplained weight gain, unexplained weight loss, other Hematologic/Lymphatic: Denies: no symptoms, anemia, easy bleeding, easy bruising, other Allergies: Coded Allergies: No Known Allergies (Unverified , 07/29/19) Subjective No acute events overnight. Pain is controlled. No drainage from wound. No fevers or chills. Still awaiting placement at [facility]. Likely tomorrow. Pending insurance approval Objective Last 24 Hour Vital Signs Date Time Temp Pulse Resp B/P (MAP) Pulse Ox O2 Delivery O2 Flow Rate FiO2 08/06/19 20:00 99.4 79 18 102/63 (76) 94 08/06/19 16:00 98.6 87 20 115/76 (89) 93 08/06/19 12:00 99.2 86 18 107/62 (77) 97 08/06/19 09:00 Room Air 08/06/19 08:36 105/64 08/06/19 08:00 99.0 87 20 105/64 (78) 97 08/06/19 05:00 98.6 77 18 121/80 (94) 96 08/06/19 00:00 98.5 88 17 119/71 (87) 96 Intake and Output 08/05/19 08/06/19 19:00 07:00 Intake Total 1300 ml 120 ml Balance 1300 ml 120 ml Intake Oral 1300 ml 120 ml # Voids 5 2 Height (Feet): 5 Height (Inches): 2.00 Weight (Pounds): 141 General Appearance: WD/WN, no apparent distress, alert EENT: PERRL/EOMI Neck: non-tender, normal alignment, supple Cardiovascular: normal peripheral pulses, normal rate, regular rhythm Respiratory/Chest: chest wall non-tender, lungs clear, normal breath sounds, no respiratory distress Abdomen: normal bowel sounds, non tender, soft, no organomegaly Extremities: other - Right leg with post operative echymoses. Incision sites bandaged. No oozing or drainage or surrounding erythem Edema: other - right leg post-operative edema, 1+ Neurologic: personnel worker II-XII grossly normal, no motor/sensory deficits, abnormal gait , alert, oriented x 3 Skin: normal pigmentation, warm/dry Linwood Young D.O. Aug 06, 2019 21:16
[2019-08-07 04:00] VITALS: BP 130/72
--- NOTE | 2019-08-07 05:00 | NUR ---
NURSE NOTES: Dressing change done to left hip. Applied 4x4 gauze and tegaderm, C/D/I.
[2019-08-07] MEDS: Heparin 5000 units/ml inj SUBQ SCH ×3 (05:39→21:26)
--- NOTE | 2019-08-07 07:08 | NUR ---
HAND-OFF: Report given to JEFFREY Romero. Pt in stable condition.
--- NOTE | 2019-08-07 07:28 | NUR ---
NURSE NOTES: Received report from JEFFREY Romero. Rounding done. Pt is having a breakfast. Denies any pain at this time. Bed in lowest position, call light within reach. Will continue to monitor.
[2019-08-07 08:00] VITALS: BP 105/66
[2019-08-07] MEDS: Losartan 25mg tab ORAL SCH (09:00)
[2019-08-07] MEDS: Aspirin Baby 81mg ORAL SCH ×2 (09:20→17:38)
[2019-08-07] MEDS: Vitamin B-12 500mcg tab ORAL SCH (09:20)
[2019-08-07] MEDS: Docusate 100mg cap ORAL SCH ×3 (09:20→17:38)
[2019-08-07] MEDS: Acetaminophen 500mg (ES) tab ORAL SCH ×3 (09:20→17:39)
--- NOTE | 2019-08-07 11:11 | NUR ---
*-* INSURANCE *-* UPDATED CLINICALS HAVE BEEN FAXED TO: [facility] No vocational case manager assigned yet Case#[id number] #[phone]
[2019-08-07 12:00] VITALS: BP 95/60
[2019-08-07 16:00] VITALS: BP 130/72
--- NOTE | 2019-08-07 17:40 | NUR ---
NURSE NOTES: Spoke to Lindsay, correctional case records supervisor regarding pt's d/c plan. She said may be d/c [facility] tomorrow. Will endorse to [employer] and can supply supervisor nurse.
--- NOTE | 2019-08-07 18:30 | General Progress Note ---
Assessment/Plan Status: stable, progressing Assessment/Plan: Ms. Gentile is a 73 year old Telugu-speaking female with hx of HTN, osteoporosis s/ p mechanical fall with right displaced femur fracture. now POD 6, s/p open reduction and internal fixation of right femur. 1. Right displaced femur fracture s/p mechanical fall s/p open reduction and internal fixation. POD 6 -Continue pain medications. -vte ppx: ASA and heparin subq,q8hr -PT --> SNF ( waiting to hear from [facility]) 2. Anemia- normocytic Blood loss vs blood loss on chronic- stable Has iron deficiency, b12 and folate also low monitor H/H, transfuse as needed Start iron sulphate TID, B12 and folic acid 3. Hyperglycemia. Hyponatremia -Keep fsbg <180. HbA1c 5.7 -Repeat bmp, sodium normal 4. Left hand contusion Xray negative. -Continue to monitor. 5.HTN, controlled -Continue home Losartan 25 -Continue home Amlodipine 5 6.Osteoporosis -Continue Fosamax 70 weekly, dose today. DC planning --> SNF-->[facility] (per family's request) I spent 25 minutes on this encounter. 50% spent on counselling and care coordination Time of this note may not reflect time of encounter Subjective Date patient seen: Aug 07, 2019 ROS Limited/Unobtainable: No Constitutional: Denies: no symptoms, chills, diaphoresis, fever, malaise, weakness, other HEENT: Denies: no symptoms, eye pain, blurred vision, tearing, double vision, ear pain, ear discharge, nose pain, nose congestion, throat pain, throat swelling, mouth pain, mouth swelling, other Cardiovascular: Denies: no symptoms, chest pain, edema, irregular heart rate, lightheadedness, palpitations, syncope, other Respiratory: Denies: no symptoms, cough, orthopnea, shortness of breath, SOB with excertion, SOB at rest, sputum, stridor, wheezing, other Gastrointestinal/Abdominal: Denies: no symptoms, abdomen distended, abdominal pain, black stools, tarry stools, blood in stool, constipated, diarrhea, difficulty swallowing, nausea, poor appetite, poor fluid intake, rectal bleeding , vomiting, other Genitourinary: Denies: no symptoms, burning, discharge, frequency, flank pain, hematuria, incontinence, pain, urgency, other Neurologic/Psychiatric: Denies: no symptoms, anxiety, depressed, emotional problems, headache, numbness, paresthesia, pre-existing deficit, seizure, tingling, tremors, weakness, other Endocrine: Denies: no symptoms, excessive sweating, flushing, intolerance to cold, intolerance to heat, increased hunger, increased thirst, increased urine, unexplained weight gain, unexplained weight loss, other Hematologic/Lymphatic: Denies: no symptoms, anemia, easy bleeding, easy bruising, other Allergies: Coded Allergies: No Known Allergies (Unverified , 07/29/19) Subjective seen and examined at bedside POD 3 s/p R femur ORIF Ambulating independently using walker waiting rehab placement, needs PT , no help at home. Objective Last 24 Hour Vital Signs Date Time Temp Pulse Resp B/P (MAP) Pulse Ox O2 Delivery O2 Flow Rate FiO2 08/07/19 16:00 98.6 84 20 130/72 (91) 97 08/07/19 12:00 99.1 82 20 95/60 (72) 97 08/07/19 09:00 Room Air 08/07/19 09:00 105/66 08/07/19 08:00 99.3 88 20 105/66 (79) 97 08/07/19 04:00 98.2 80 18 130/72 (91) 96 08/06/19 21:00 Room Air 08/06/19 20:00 99.4 79 18 102/63 (76) 94 Intake and Output 08/06/19 08/07/19 19:00 07:00 Intake Total 800 ml 120 ml Output Total 3 ml Balance 800 ml 117 ml Intake Oral 800 ml 120 ml Output Urine Total 3 ml # Voids 2 Height (Feet): 5 Height (Inches): 2.00 Weight (Pounds): 141 Objective General Appearance: no apparent distress, alert Lines, tubes and drains: peripheral HEENT: normocephalic, atraumatic, anicteric Neck: supple, no jvd Respiratory/Chest: lungs clear, normal breath sounds, no respiratory distress, no accessory muscle use Cardiovascular/Chest: normal rate, regular rhythm, no gallop/murmur Abdomen: normal bowel sounds, non tender, soft Neurologic: alert, oriented x 3, responsive, other - legs with normal sensation bilaterally. Musculoskeletal: normal muscle bulk skin: no rashes or ulcers You Warner M.D. Aug 07, 2019 18:30
--- NOTE | 2019-08-07 19:25 | NUR ---
NURSE NOTES: Report taken from JEFFREY Romero. Patient is awake and in bed, family at bedside. A&Ox4. No signs of distress on room air. No complaints of pain, patient is able to transfer and ambulate by self with use of rolling walker. Rt leg exhibits bruising from procedure, skin intact, surgical site c/d/i. IV site c/d/i and saline locked. Awaiting placement at SNF. Bed in lowest position, call light within reach.
--- NOTE | 2019-08-07 19:41 | NUR ---
HAND-OFF: Report given to JEFFREY Carnes.
[2019-08-07 20:00] VITALS: BP 110/63
--- NOTE | 2019-08-07 21:18 | NUR ---
CASE MANAGEMENT: REVIEW SI: MULTIPLE TRAUMA / FALL . RIGHT FEMUR FRACTURE ORIF RIGHT FEMUR 08/01 T 99.1 HR 82 RR 20 BP 95/60 SAT 97% ROOM AIR IS: DILAUDID SUBQ Q4HR PRN ASA BID FOSAMAX PO QWEEK HEPARIN SUBQ Q8HR AMBULATING INDEPENDENTLY USING WALKER MED/SURG STATUS DCP: PATIENT IS FROM HOME PLAN: WAITING REHAB PLACEMENT, NEEDS PT , NO HELP AT HOME .
[2019-08-08] VITALS: BP 111/67
[2019-08-08 04:00] VITALS: BP 115/69
[2019-08-08] MEDS: Heparin 5000 units/ml inj SUBQ SCH ×2 (05:17→13:45)
[2019-08-08 06:36] LABS: BASOPHILS % (AUTO) 0.8 % (0.0-2.0); EOSINOPHILS % (AUTO) 5.7 % (0.0-3.0); HEMOGLOBIN 8.5 G/DL (12.0-16.0); LYMPHOCYTES % (AUTO) 27.6 % (20.0-45.0); MEAN CORPUSCULAR VOLUME 100 FL (80-99); MONOCYTES % (AUTO) 9.6 % (1.0-10.0); NEUTROPHILS % (AUTO) 56.4 % (45.0-75.0); PLATELET COUNT 391 K/UL (150-450); RED CELL DISTRIBUTION WIDTH 15.2 % (11.6-14.8); WHITE BLOOD COUNT 5.5 K/UL (4.8-10.8)
[2019-08-08 07:01] LABS: ANION GAP 8 mmol/L (5-15); BLOOD UREA NITROGEN 19 mg/dL (7-18); CALCIUM 8.7 MG/DL (8.5-10.1); CARBON DIOXIDE 27 MMOL/L (21-32); CHLORIDE 102 MMOL/L (98-107); CREATININE 0.6 MG/DL (0.55-1.30); POTASSIUM 4.3 MMOL/L (3.5-5.1); SODIUM 137 MMOL/L (136-145)
--- NOTE | 2019-08-08 07:36 | NUR ---
HAND-OFF: Report given to JEFFREY Cabello. Patient is awake and stable.
--- NOTE | 2019-08-08 07:40 | NUR ---
NURSE NOTES: Received report from Deyvi MURPHY. Patient is awake and oriented, no acute distress noted, patient is reporting pain at this time, will medicate per order when due. Patient is up in a chair during rounds with walker. IV locked, asymptomatic. Patient educated to exercise caution and call staff as needed when ambulating due to fall risk. Will continue to monitor.
[2019-08-08 08:00] VITALS: BP 89/66
[2019-08-08] MEDS: Aspirin Baby 81mg ORAL SCH (08:23)
[2019-08-08] MEDS: Vitamin B-12 500mcg tab ORAL SCH (08:24)
[2019-08-08] MEDS: Docusate 100mg cap ORAL SCH ×2 (08:24→13:44)
[2019-08-08] MEDS: Losartan 25mg tab ORAL SCH (08:25)
[2019-08-08] MEDS: Acetaminophen 500mg (ES) tab ORAL SCH ×2 (08:25→13:45)
[2019-08-08 12:00] VITALS: BP 116/68
--- NOTE | 2019-08-08 13:34 | NUR ---
SOFTWARE DEVELOPMENT ANALYST NOTES PT ACCEPTED TO [facility] ROOM 1 BED B. SPOKE WITH SON EVIN MADE AWARE OF PT ACCEPTANCE AND TRANSFER TODAY.
--- NOTE | 2019-08-08 13:51 | Discharge Summary ---
Discharge Summary Hospital Course Date of Admission Jul 29, 2019 at 23:12 Date of Discharge 08/08/2019 Admitting Diagnosis R femur fracture EMMA Gentile is a 73 year old female who was admitted on Jul 29, 2019 at 23:12 for Right Femur Facture Consultations orthopedics: Dr. Teja Calderón Procedures Right femur ORIF Hospital Course Ms. Gentile is a 73 year old Slovenian-speaking female with hx of HTN, osteoporosis s/ p mechanical fall with right displaced femur fracture. now POD 7, s/p open reduction and internal fixation of right femur. 1. Right displaced femur fracture s/p mechanical fall s/p open reduction and internal fixation. POD 7 -Continue pain medications. -vte ppx: ASA and heparin subq,q8hr -PT --> SNF ([facility]) 2. Anemia- normocytic Blood loss vs blood loss on chronic- stable Has iron deficiency, b12 and folate also low monitor H/H, transfuse as needed Start iron sulphate TID, B12 and folic acid 3. Hyperglycemia. Hyponatremia -Keep fsbg <180. HbA1c 5.7 -Repeat bmp, sodium normal 4. Left hand contusion Xray negative. -Continue to monitor. 5.HTN, controlled -Continue home Losartan 25 -Continue home Amlodipine 5 6.Osteoporosis -Continue Fosamax 70 weekly, dose today. DC planning --> SNF--> [facility] (per family's request) Today she is doing well, ambulating using a walker. Sensation to lower extremities normal. I spent 35 minutes on this encounter. 50% spent on counselling and care coordination Time of this note may not reflect time of encounter Discharge Medications New Medications: Aspirin* (Aspirin*) 81 Mg Tab.chew 81 MG ORAL BID for 30 Days, #30 TAB Cyanocobalamin (Vitamin B-12)* (Vitamin B-12*) 500 Mcg Tablet 1000 MCG ORAL DAILY for 7 Days, #7 TAB Docusate Sodium* (Colace*) 100 Mg Capsule 100 MG ORAL THREE TIMES A DAY for 30 Days, #90 CAP Ferrous Sulfate (Feosol) 325 Mg Tablet 325 MG ORAL THREE TIMES A DAY for 30 Days, #90 TAB Folic Acid* (Folic Acid*) 1 Mg Tablet 1 MG ORAL DAILY for 30 Days, #30 TAB Heparin Sod (Porcine) (Heparin Sodium*) 5 000/1 Ml Vial 5000 UNITS SUBQ EVERY 8 HOURS for 10 Days, #10 VIAL Hydrocodone Bit/Acetaminophen 5-325* ([place] 5-325*) 1 Each Tablet 1 TAB ORAL Q4H PRN for 30 Days, #60 TAB Pantoprazole* (Pantoprazole*) 40 Mg Tablet.dr 40 MG ORAL DAILY for 10 Days, #10 TAB Continued Medications: Alendronate Sodium/Vitamin D3 (Fosamax Plus D 70 Mg-5,600 Iu) 1 Each Tablet 1 EACH PO ONCE A WEEK, TAB Losartan Potassium* (Cozaar*) 25 Mg Tablet 25 MG ORAL DAILY, TAB Discontinued Medications: Amlodipine Besylate (Norvasc) 5 Mg Tablet 5 MG ORAL DAILY, TAB Discharge Condition Upon Discharge: stable Discharge Disposition Patient was discharged to Discharge Diagnoses: (1) S/P ORIF (open reduction internal fixation) fracture (2) B12 deficiency anemia (3) Femur fracture, right (4) HTN (hypertension) (5) Osteoporosis (6) Contusion of left hand (7) Acute blood loss anemia You Warner M.D. Aug 08, 2019 13:51
--- NOTE | 2019-08-08 15:03 | NUR ---
P.T Weekly Progress Notes: Pt seen for skilled P.T. services this past week and has responded well during the course of P.T. Pt currently able to perform bed mobility indep/supervision and transfers with SBA/supervision. Pt able to ambulate and tolerate average distance of 175 ft using the FWW with SBA/supervision. Pt continue to be limited by pain and fear of falling when ambulating alone. Plan: anticipated DC today to [facility] for further P.T intervention.
--- NOTE | 2019-08-08 15:07 | NUR ---
NURSE NOTES: Called [facility] and gave report to Bharat RN. Endorsed that patient's discharge medication list was completed on 08/04/2019 (date of original discharge order) and that [place] Rx is being sent with patient in discharge packet.
--- NOTE | 2019-08-08 15:36 | NUR ---
NURSE NOTES: Patient discharged in stable condition via EMS transport. Report given to EMS personnel, [place] [facility] in patient's discharge packet endorsed to EMS crew. All belongings sent with patient, IV removed intact. Transferred safely to [facility] and transported off unit at 1530.
== END 2019-08-08 15:35 | disposition short-term general hospital (02) | DRG 481 ==
LOC: EDBD 20:51 → EMR 21:38 → EDBEDREQ 22:46 → 3E 23:12
PROC: 0QS804Z Reposition Right Femoral Shaft with Internal Fixation Device, Open Approach (ICD-10-PCS; principal; 2019-08-01 07:00)
DX: S72.351A Displaced comminuted fracture of shaft of right femur, initial encounter for closed fracture (principal); E87.1 Hypo-osmolality and hyponatremia; S60.222A Contusion of left hand, initial encounter; I10 Essential (primary) hypertension; N81.0 Urethrocele; W19.XXXA Unspecified fall, initial encounter; Y92.9 Unspecified place or not applicable; D50.0 Iron deficiency anemia secondary to blood loss (chronic); R73.9 Hyperglycemia, unspecified; M81.0 Age-related osteoporosis without current pathological fracture
CPT/HCPCS: 36415; 71045; 76000; 80048; 80053; 81001; 82607; 82728; 82746; 83036; 83540; 83550; 85025; 85610; 85730; 86850; 86900; 86901; 93005; 93306; 94003; 94150; 96374; 96375; 99285; J2405